=== PATIENT | female | born 1950 | race Caucasian/White ===

== ENCOUNTER → 2020-10-11 | Outpatient (CLI) | payer MEDICARE ==
[2020-10-11 13:45] LABS: T4, Free (Free Thyroxine) 1.45 ng/dL (0.78-2.19)
--- NOTE | 2020-10-11 19:26 | MR ---
EXAMINATION TYPE: MR brain wo/w con DATE OF EXAM: 10/11/2020 COMPARISON: NONE HISTORY: 70-year-old female G40.20, new onset temporal lobe Seizures. TECHNIQUE: Multiplanar, multisequence images of the brain and brainstem were acquired before and aft er administration of 7 mL IV Gadavist. Diffusion weighted imaging is performed. FINDINGS: There is some linear restricted diffusion along the right parafalcine occipital lobe that shows corre sponding bright T2 signal and enhancement measuring 1.9 cm AP, 4 mm thick, 1.9 cm craniocaudal. Otherwise, no restricted diffusion is seen. There is mild generalized supratentorial volume loss. No hydrocephalus. T2/FLAIR weighted sequences show moderate scattered burden of bright white matter change especially i n the subcortical and deep white matter regions was also in the periventricular regions of both cereb ral hemispheres. Major intracranial flow voids are intact. Midline structures demonstrate normal morphology. The craniocervical junction is normal. Post contrast images demonstrate no additional evidence of pathologic enhancement. Dural venous sinu ses are patent. Mild mucosal thickening ethmoid air cells. Small amount of fluid within the right mastoid air cells. Globes appear intact. IMPRESSION: 1. Some linear restricted diffusion along the right parafalcine occipital lobe shows corresponding en hancement measuring 1.9 cm long and 4 mm thick. Consider CSF sampling and inflammatory etiologies suc h as meningitis or neurosarcoid. Limited leptomeningeal spread is unlikely in the absence of a known primary neoplasm. MRI follow-up after any potential treatment. 2. Mild generalized atrophy and moderate scattered burden of chronic small vessel ischemic disease. 3. Small amount of fluid within the right mastoid air cells. Correlate for any mastoid pain to exclud e mastoiditis.
[2020-10-12 04:13] LABS: Protein, Total 6.8 g/dL (6.2-8.2)
[2020-10-12 13:56] LABS: Albumin 4.18 g/dL (3.80-4.90); Gamma Globulin 1.03 g/dL (0.70-1.50)
== END | disposition home or self-care (01) ==
LOC: RADMRIMAIN 10:36
PROVIDERS: ATTEND Psychiatry & Neurology Neurology
DX: I67.82 Cerebral ischemia (principal); R56.9 Unspecified convulsions; G31.9 Degenerative disease of nervous system, unspecified
CPT/HCPCS: 84439; 82747; 85652; 82607; 82550; 84443; 84165; 86038; 83036; 70553; 36415; A9585

== ENCOUNTER 2020-11-03 07:24 | Day surgery (SDC) | payer MEDICARE ==
[2020-11-03 08:06] VITALS: RESP 16; TEMP 97.3
[2020-11-03] MEDS ORDERED: LIDOCAINE 1% (10MG/ML) FOR IV START INTRADERMA ONE (08:16)
[2020-11-03] MEDS ORDERED: LACTATED RINGERS 1,000 ML IV ONE (08:16)
[2020-11-03] MEDS ORDERED: MIDAZOLAM 2 MG/2 ML VIAL ONE (08:23)
[2020-11-03] MEDS ORDERED: LIDOCAINE 1% INJ 10MG/ML (20 ML MDV) ONE (08:23)
--- NOTE | 2020-11-03 08:54 | P.PCN ---
Date of Procedure: 11/03/20 Description of Procedure: Preoperative diagnosis: seizures Post operative diagnoses: seizures Anesthesia local infiltration with lidocaine 1% 2 mL., [moderate sedation with fentanyl and Versed], sedation time 26 min Procedure: lumbar puncture usin fluroscope Condition: stable Complication: none. Description of the procedure procedure risk and benefits discussed with the patient and family, consent signed. Patient was taken to the procedure area placed in left lateral position. Local infiltration of the skin and subcutaneous tissue with lidocaine 1%. A 20-gauge Quincke-type needle advanced slowly at L3-4 interlaminar space using fluoroscopic guidance. I attempted without fluoroscopy x2 but was unsuccessful. CSF was collected. A total of 8 ML of clear cerebrospinal fluid collected in 4 tubes. Then, the needle was removed and a Band-Aid applied and patient tolerated the procedure well without any complications.
[2020-11-03] MEDS ORDERED: IV FLUID CONTINUATION 1,000 ML IV ONE (08:59)
--- NOTE | 2020-11-03 09:11 | FL ---
EXAMINATION TYPE: FL guided pain mgmt statistic DATE OF EXAM: 11/03/2020 FLUOROSCOPY Fluoroscopy time of 16 seconds was used during lumbar puncture. 1 image/s document/s the procedure.
[2020-11-03 09:14] VITALS: BP 119/56; PULSE 54
[2020-11-03 09:49] LABS: Glucose,CSF 55 mg/dL (40-70); Total Protein,CSF 85 mg/dL (12-60)
[2020-11-03 10:39] LABS: Appearance,CSF Clear; CSF Tube Number 4; CSF Tube Volume 1.8; Nucleated Cells, CSF 0 u/L (0-5); Red Blood Cell,CSF 3 u/L (0-10)
[2020-11-03 13:14] LABS: Partial Thromboplastin Time 24.3 sec (22.0-30.0); Prothrombin Time 10.6 sec (9.0-12.0)
[2020-11-04 10:55] LABS: VDRL, Qualitative CSF Nonreactive (Nonreactive)
== END 2020-11-03 09:49 | disposition home or self-care (01) ==
LOC: ORPAIN 07:24
PROVIDERS: ATTEND Anesthesiology
DX: R93.0 Abnormal findings on diagnostic imaging of skull and head, not elsewhere classified (principal); R56.9 Unspecified convulsions
CPT/HCPCS: 62270; 87529; 86592; 88108; 84157; 82945; 82164 ×2; 85610; 85730; 89050; 86618; 86038; J2250; J2001; 99152; 99153

== ENCOUNTER → 2020-12-30 | Outpatient (CLI) | payer MEDICARE ==
--- NOTE | 2020-12-30 18:09 | MR ---
EXAMINATION TYPE: MR brain wo/w con DATE OF EXAM: 12/30/2020 5:26 PM COMPARISON: The 10/11/2020 HISTORY: Abnormal Brain MRI CONTRAST: Patient received 6ml mL intravenous Gadavist gadolinium contrast. Multiplanar and multispin-echo imaging of the brain was performed . Pre and post contrast enhanced i mages are obtained. The ventricles, basal cisterns and sulci overlying the cerebral convexities are mildly enlarged. There is evidence of mild periventricular white matter ischemic demyelination. Remote deep white matter insults are also noted. No acute edema is seen on diffusion weighted imaging. Previously noted area of the increased signa l on diffusion-weighted imaging within the posterior parafalcine occipital lobe is not redemonstrated . Please note examination utilizing different magnets. There is no evidence for midline shift or mass effect. Acute intracranial hemorrhage or extra-axial collection is not evident. No enhancing lesions are seen. The paranasal sinuses and mastoid air cells are well-aerated. IMPRESSION: 1. Age-related atrophic and chronic small vessel ischemic change. No acute intracranial process at this time. 2. Previously noted area of the increased signal on diffusion-weighted imaging within the posterior p arafalcine occipital lobe is not redemonstrated.
== END | disposition home or self-care (01) ==
LOC: RADMRIMAIN 15:52
PROVIDERS: ATTEND Psychiatry & Neurology Neurology
DX: I67.82 Cerebral ischemia (principal); G31.9 Degenerative disease of nervous system, unspecified
CPT/HCPCS: 70553; A9585

== ENCOUNTER → 2021-01-12 | Outpatient (CLI) | payer MEDICARE ==
--- NOTE | 2021-01-12 15:57 | XR ---
EXAMINATION TYPE: XR cervical spine 6 views comp, XR thoracic spine 3 views complete DATE OF EXAM: 01/12/2021 COMPARISON: None HISTORY: 70-year-old female abnormal bony protuberance, neck pain, upper back pain. FINDINGS: Cervical spine: There is either a bipartite or chronically ununited segmental fracture of the right posterior first r ib. Correlate as to this corresponds to a palpable abnormality. There is also a right-sided first and second rib synostosis. No predental space widening or prevertebral soft tissue swelling. Degenerative changes at the C1 dens articulation. Multilevel facet and uncovertebral joint arthropathy. Moderate disc/endplate degenerat mehul change C3-C5 levels and C6-C7. This characterized by disc space narrowing, endplate sclerosis, an d anterior spurring. Grade 1 retrolisthesis C4-C5 and grade 1 anterolisthesis C5-C6. Limited odontoid view. On the right, possible severe bony neuroforaminal narrowing at C4-C5 and moderate at C3-C4. On the le ft, moderate bony neuroforaminal narrowing at C4-C5 and C6-C7. Thoracic spine: Undulating curvature of the thoracic spine with a prominent levoconvex component along the lower thor acic spine. 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 [facility] in the mid and lower thoracic sp ine. Vertebral body heights are preserved. Grade 1 retrolisthesis seems to be present at L1-L2 and L2 -L3. 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 Grade 1 anterolisthesis T2-T3 and T3-T4. IMPRESSION: Cervical spine: 1. Either bipartite right-sided first rib versus a chronically ununited segmental fracture of the pos terior right first rib. Correlate as to if this corresponds to a palpable abnormality. There is also a right-sided first and second rib synostosis. 2. Moderate multilevel spondylotic change. 3. Degenerative grade 1 spondylolisthesis C4-C5 and C5-C6. 4. There appears to be severe bony neural foraminal narrowing on the right at the C5 and moderate at a few additional levels as outlined above. Thoracic spine: 5. Undulating curvature of the thoracic spine with a prominent levoconvex component at the lower thor acic spine. 6. 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 7. 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 8. Degenerative grade 1 anterolisthesis T2-T3 and T3-T4 and degenerative grade 1 retrolisthesis L1-L2 and L2-L3.
== END | disposition home or self-care (01) ==
LOC: RADXRMAIN 13:36
PROVIDERS: ATTEND Psychiatry & Neurology Neurology
DX: M47.812 Spondylosis without myelopathy or radiculopathy, cervical region (principal); M43.12 Spondylolisthesis, cervical region; M43.16 Spondylolisthesis, lumbar region
CPT/HCPCS: 72050; 72072

== ENCOUNTER → 2021-09-05 | Outpatient (CLI) | payer MEDICARE ==
[2021-09-06 00:12] LABS: African American GFR (CKD) 108.7 (60.0-200.0); Anion Gap 10.2 mmol/L (10.00-18.00); BUN/Creat Ratio 31.47 Ratio (12.00-20.00); Blood Urea Nitrogen 16.9 mg/dL (9.0-27.0); Calcium 9.9 mg/dL (8.7-10.3); Carbon Dioxide 29.1 mmol/L (20.0-27.5); Non-African American GFR(CKD) 93.8 (60.0-200.0); Potassium 4.8 mmol/L (3.5-5.5)
[2021-09-06 00:55] LABS: Basophils # (A) 0.06 X 10*3/uL (0.00-0.10); Basophils % (A) 0.8 %; Eosinophils # (A) 0.17 X 10*3/uL (0.04-0.35); Eosinophils % (A) 2.3 %; HCT 36.6 % (37.2-46.3); HGB 11.7 g/dL (12.0-15.0); Immature Grans, Automated 0.3 %; Lymphocytes # (A) 1.61 X 10*3/uL (0.90-5.00); Lymphocytes % (A) 21.4 %; MCV 87.6 fL (80.0-97.0); Mean Platelet Volume 9.5 fL (9.5-12.2); Monocytes # (A) 0.43 X 10*3/uL (0.20-1.00); Monocytes % (A) 5.7 %; NRBC Per 100 WBC 0 /100 WBCS (0.0-0.0); Neutrophils # (A) 5.22 X 10*3/uL (1.80-7.70); Neutrophils % (A) 69.5 %; Platelet Count 313 X 10*3/uL (140-440); RBC 4.18 X 10*6/uL (4.10-5.20); RDW 13.7 % (11.5-14.5); WBC 7.51 X 10*3/uL (4.50-10.00)
== END | disposition home or self-care (01) ==
LOC: LABWHC1 15:03
PROVIDERS: ATTEND Psychiatry & Neurology Neurology
DX: Z51.81 Encounter for therapeutic drug level monitoring (principal)
CPT/HCPCS: 36415; 80048; 85025

== ENCOUNTER 2021-10-13 13:43 | Inpatient (IN) | payer MEDICARE ==
[2021-10-13] MEDS ORDERED: SODIUM CHLORIDE 0.9% 1,000 ML IV STA (14:08)
[2021-10-13] MEDS ORDERED: levETIRAcetam IV 1,000 MG in SALINE 1 100ML.BAG IVPB STA (14:08)
--- NOTE | 2021-10-13 14:26 | ED ---
General Adult HPI - General Chief complaint: Seizure Stated complaint: Seizures Time Seen by Provider: 10/13/21 13:52 Source: EMS, RN notes reviewed, old records reviewed Mode of arrival: EMS Limitations: altered mental status - History of Present Illness Initial comments: Patient is a 71-year-old female with past medical history remarkable for hypertension, seizure disorder who presents emergency department for multiple seizures today. Patient said for seizures. Per family and EMS, patient recently was switched from Keppra to trileptal. Patient for seizures morning. Did have urinary incontinence. Patient currently states she feels fine. Not altered. No acute complaints. Denies chest pain, shortness breath, abdominal pain, nausea, vomiting. Denies fevers, sick contacts. No other acute complaints. Presents for further evaluation time. He isn't known history of seizures. Is uncertain if she hit her head. States she is not on blood thinners. - Related Data Home Medications Medication Instructions Recorded Confirmed lisinopriL [Prinivil] 20 mg PO DAILY 11/03/20 10/13/21 Cyclobenzaprine [Flexeril] 5 mg PO DAILY 10/13/21 10/13/21 Cyclobenzaprine [Flexeril] 10 mg PO HS 10/13/21 10/13/21 Magnesium 250 mg PO DAILY 10/13/21 10/13/21 OXcarbazepine [Trileptal] 300 mg PO BID 10/13/21 10/13/21 Turmeric Complex 3 capsule PO DAILY 10/13/21 10/13/21 traMADol HCL 50 mg PO Q8H PRN 10/13/21 10/13/21 Allergies Allergy/AdvReac Type Severity Reaction Status Date / Time No Known Allergies Allergy Verified 10/13/21 17:51 Review of Systems ROS Statement: Those systems with pertinent positive or pertinent negative responses have been documented in the HPI. Review of Systems: CONST: Denies fever EYES: Denies blurry vision ENT: Denies nasal congestion C/V: Denies Chest pain RESP: Denies shortness of breath GI: Denies abdominal pain : Denies dysuria SKIN: Denies rash. MSK: Denies joint pain. NEURO: Denies headache ROS Other: All systems not noted in ROS Statement are negative. General Exam - General Exam Comments Initial Comments: General: Appears in no acute distress. HEAD: Normal with no signs of head trauma. Negative raccoon eyes, negative Munoz sign. EYES: PERRLA, EOMI, conjunctiva normal, no discharge. Pupils are 2 mm and equal bilaterally. ENT: Hearing grossly intact, normal oropharynx. RESPIRATORY: Clear breath sounds bilaterally. No wheezes, rales, or rhonchi. C/V: Tachycardic with a regular rhythm. S1 and S2 auscultated. Peripheral pulses 2+ and intact throughout. ABD: Abd is soft, nontender, nondistended EXT: Normal range of motion, no obvious deformity SKIN: No rashes or lesions observed on exposed skin. NEURO: Alert and oriented x 4. Cranial nerves II-XII intact. No focal sensory or strength deficits. NIH of 0. GCS of 15. No focal deficits. Limitations: altered mental status Course Vital Signs 10/13/21 10/13/21 10/13/21 13:47 15:22 17:00 Temperature 98.4 F Pulse Rate 114 H 109 H 107 H Respiratory 18 16 18 Rate Blood Pressure 155/99 166/90 160/87 O2 Sat by Pulse 96 97 98 Oximetry 10/13/21 10/13/21 18:16 19:12 Temperature 97.7 F Pulse Rate 110 H 97 Respiratory 18 16 Rate Blood Pressure 173/92 150/80 O2 Sat by Pulse 98 94 L Oximetry Medical Decision Making - Medical Decision Making Patient is a 71-year-old female with history of seizures who presents for multiple breakthrough seizures today. Recently was switched to a different medication for seizure control. Based on her presentation and physical exam, I would like to obtain basic laboratory studies, administered her dose of Keppra, as well as monitor her for further seizure activity. Family is on the way here he quit them when they arrived. I did recommend we obtain a CT brain, as the p atient. Multiple seizures and she is uncertain if she fell, with her age is more prone to injury. Patient was in agreement with this plan. She'll be given IV fluids in addition to the IV Keppra. His no other acute complaints at this time. Seizure pads and precautions were ordered. EKG showed no signs of acute ischemia.Laboratory studies are remarkable for hyponatremia of 126 and hypochloremia of 95. Remainder the labs are unremarkable including a normal urine. Alcohol is negative. Chest x-ray shows no acute cardio primary process. Brain CT shows no acute intracranial process. On reevaluation, patient's confusion is just improved. She is still slow to respond to some questions. Patient's daughter is at bedside, and patient does have some confusion. The family members which she states they typical for her. Patient is having difficulty naming the names of all of her grandchildren as well as the names of her children. I splinter that she still may be postictal. With her dehydration, we can keep her and give her overnight. They were in agreement this plan. I spoke with the admitting physician, Dr. Campbell who accepted the patient. Neurology was consulted for evaluation the morning. Patient was restarted on Trileptal as well as Keppra. Patient states she had some right rib pain and chest x-ray was obtained which showed no acute process. - Lab Data Result diagrams: 10/13/21 15:02 10/13/21 15:02 Lab Results 10/13/21 10/13/21 10/13/21 Range/Units 15:02 15:02 17:12 WBC 8.5 (3.8-10.6) k/uL RBC 4.50 (3.80-5.40) m/uL Hgb 13.1 (11.4-16.0) gm/dL Hct 39.5 (34.0-46.0) % MCV 87.6 (80.0-100.0) fL MCH 29.0 (25.0-35.0) pg MCHC 33.1 (31.0-37.0) g/dL RDW 13.3 (11.5-15.5) % Plt Count 339 (150-450) k/uL MPV 7.1 Neutrophils % 92 % Lymphocytes % 5 % Monocytes % 2 % Eosinophils % 0 % Basophils % 0 % Neutrophils # 7.8 H (1.3-7.7) k/uL Lymphocytes # 0.5 L (1.0-4.8) k/uL Monocytes # 0.2 (0-1.0) k/uL Eosinophils # 0.0 (0-0.7) k/uL Basophils # 0.0 (0-0.2) k/uL Sodium 126 L (137-145) mmol/L Potassium 4.5 (3.5-5.1) mmol/L Chloride 95 L (98-107) mmol/L Carbon Dioxide 24 (22-30) mmol/L Anion Gap 7 mmol/L BUN 15 (7-17) mg/dL Creatinine 0.47 L (0.52-1.04) mg/dL Est GFR (CKD-EPI)AfAm >90 (>60 ml/min/1.73 sqM) Est GFR (CKD-EPI)NonAf >90 (>60 ml/min/1.73 sqM) Glucose 111 H (74-99) mg/dL Calcium 9.3 (8.4-10.2) mg/dL Magnesium 1.9 (1.6-2.3) mg/dL Total Bilirubin 0.3 (0.2-1.3) mg/dL AST 20 (14-36) U/L ALT 14 (4-34) U/L Alkaline Phosphatase 64 (38-126) U/L Total Protein 7.0 (6.3-8.2) g/dL Albumin 4.4 (3.5-5.0) g/dL Urine Color Colorless Urine Appearance Clear (Clear) Urine pH 7.0 (5.0-8.0) Ur Specific [place] 1.004 (1.001-1.035) Urine Protein Negative (Negative) Urine Glucose (UA) Negative (Negative) Urine Ketones 1+ H (Negative) Urine Blood Negative (Negative) Urine Nitrite Negative (Negative) Urine Bilirubin Negative (Negative) Urine Urobilinogen <2.0 (<2.0) mg/dL Ur Leukocyte Esterase Negative (Negative) Serum Alcohol <10 mg/dL - EKG Data -: EKG Interpreted by Me EKG Comments: 12-lead Electrocardiogram Interpretation Note EKG was reviewed and interpreted by myself. 12-lead ECG performed at 1400 is interpreted by me as revealing sinus tachycardia at a rate of 114 beats per minute. [place] is normal. [place] interval is 182 ms, QRS duration is 91 ms, QTc is 390 ms.. There were no ST or T wave abnormalities to suggest myocardial ischemia or injury. R wave progression across the precordium was satisfactory. By my interpretation this EKG is non-diagnostic for acute ischemia. No prior comparison to EKGs. Disposition Clinical Impression: Dehydration, Hyponatremia, Breakthrough seizure, Post-ictal confusion Disposition: ADMITTED IP TO THIS [facility] Condition: Stable Time of Disposition: 18:03
[2021-10-13 15:10] LABS: Basophils % (A) 0 %; Eosinophils % (A) 0 %; HCT 39.5 % (34.0-46.0); HGB 13.1 gm/dL (11.4-16.0); Lymphocytes # (A) 0.5 k/uL (1.0-4.8); Lymphocytes % (A) 5 %; MCHC 33.1 g/dL (31.0-37.0); MCV 87.6 fL (80.0-100.0); Mean Platelet Volume 7.1; Monocytes # (A) 0.2 k/uL (0-1.0); Monocytes % (A) 2 %; Neutrophils # (A) 7.8 k/uL (1.3-7.7); Neutrophils % (A) 92 %; Platelet Count 339 k/uL (150-450); RDW 13.3 % (11.5-15.5); WBC 8.5 k/uL (3.8-10.6)
[2021-10-13 15:21] LABS: ALT 14 U/L (4-34); AST 20 U/L (14-36); African American GFR (CKD) >90 (>60 ml/min/1.73 sqM); Albumin 4.4 g/dL (3.5-5.0); Alcohol <10 mg/dL; Alkaline Phosphatase 64 U/L (38-126); Anion Gap 7 mmol/L; Blood Urea Nitrogen 15 mg/dL (7-17); Calcium 9.3 mg/dL (8.4-10.2); Carbon Dioxide 24 mmol/L (22-30); Chloride 95 mmol/L (98-107); Glucose 111 mg/dL (74-99); Magnesium 1.9 mg/dL (1.6-2.3); Non-African American GFR(CKD) >90 (>60 ml/min/1.73 sqM); Potassium 4.5 mmol/L (3.5-5.1); Sodium 126 mmol/L (137-145); Total Bilirubin 0.3 mg/dL (0.2-1.3)
[2021-10-13] MEDS ORDERED: SODIUM CHLORIDE 0.9% 500 ML 500 ML IV STA (15:24)
--- NOTE | 2021-10-13 16:16 | CT ---
EXAMINATION TYPE: CT brain wo con CT DLP: 1143.4 mGycm, Automated exposure control for dose reduction was used. DATE OF EXAM: 10/13/2021 4:01 PM COMPARISON: None6. CLINICAL INDICATION:Female, 71 years old with history of seizure activity, Seizure activity TECHNIQUE: Brain: Axial CT images of the brain were obtained with coronal and sagittal reformats created and rev iewed. Contrast used: None. Oral contrast used: None. FINDINGS: Brain: Extra-axial spaces: No abnormal extra-axial fluid collections. Ventricular system: Dilatation in proportion to cerebral atrophy. Cerebral parenchyma: Cerebral atrophy. No acute intraparenchymal hemorrhage or mass effect. The mendoza -white junction is well differentiated. Scattered hypoattenuating areas are seen within the white mat ter. Cerebellum: Unremarkable. Mass effect: No evidence of midline shift. Intracranial vasculature: Atherosclerotic calcifications of the intracranial vessels. Soft tissues: Normal. Calvarium/osseous structures: No depressed skull fracture. Paranasal sinuses and mastoid air cells: Mild scattered paranasal sinus disease. Visualized orbits: Orbital contents are intact. IMPRESSION: 1. No acute intracranial process. 2. Nonspecific white matter changes, likely secondary to chronic small vessel ischemic disease.
[2021-10-13 17:17] LABS: Appearance,Urine Clear (Clear); Bilirubin,Urine Negative (Negative); Blood,Urine Negative (Negative); Color,Urine Colorless; Glucose,Urine (UA) Negative (Negative); Ketones,Urine 1+ (Negative); Leukocyte Esterase,Urine Negative (Negative); Nitrite,Urine Negative (Negative); Protein,Urine Negative (Negative); Specific Gravity,Urine 1.004 (1.001-1.035); Urobilinogen,Urine <2.0 mg/dL (<2.0)
[2021-10-13] MEDS ORDERED: ONDANSETRON 4 MG/2 ML VIAL IVP PRN (18:03)
[2021-10-13] MEDS ORDERED: NALOXONE 0.4 MG/ML 1 ML VIAL IV PRN (18:03)
[2021-10-13] MEDS ORDERED: traMADol 50 MG TAB PO PRN (18:08)
--- NOTE | 2021-10-13 18:45 | XR ---
EXAMINATION TYPE: XR chest 2V DATE OF EXAM: 10/13/2021 COMPARISON: NONE HISTORY: Chest pain TECHNIQUE: 2 views FINDINGS: Heart is normal. Lungs are clear of infiltrate. No heart failure. There is some spurring in the shoulder joints. There is spurring in the thoracic spine. No sign of pleural effusion. IMPRESSION: No active cardiopulmonary disease.
[2021-10-13] MEDS: levETIRAcetam 500 MG TAB PO SCH (21:32)
[2021-10-13] MEDS: CYCLOBENZAPRINE 10 MG TAB PO SCH (21:32)
[2021-10-13] MEDS: SODIUM CHLORIDE 0.9% 1,000 ML IV SCH (21:33)
[2021-10-13] MEDS: OXcarbazepine 300 MG TAB PO SCH (21:36)
[2021-10-14] MEDS: SODIUM CHLORIDE 0.9% 1,000 ML IV SCH ×2 (06:40→23:57)
[2021-10-14] MEDS: levETIRAcetam 500 MG TAB PO SCH ×2 (09:28→21:07)
[2021-10-14] MEDS: MAGNESIUM OXIDE 400 MG TAB PO SCH (09:28)
[2021-10-14] MEDS: CYCLOBENZAPRINE 5 MG TAB PO SCH (09:28)
[2021-10-14] MEDS: OXcarbazepine 300 MG TAB PO SCH ×2 (09:28→21:07)
[2021-10-14] MEDS: lisinopriL 20 MG TAB PO SCH (09:28)
[2021-10-14 10:14] LABS: Basophils % (A) 0 %; Eosinophils # (A) 0.1 k/uL (0-0.7); Eosinophils % (A) 1 %; HCT 35.4 % (34.0-46.0); HGB 11.6 gm/dL (11.4-16.0); Lymphocytes # (A) 1.1 k/uL (1.0-4.8); Lymphocytes % (A) 21 %; MCH 28.9 pg (25.0-35.0); MCHC 32.7 g/dL (31.0-37.0); MCV 88.3 fL (80.0-100.0); Monocytes # (A) 0.3 k/uL (0-1.0); Monocytes % (A) 6 %; Neutrophils # (A) 3.5 k/uL (1.3-7.7); Neutrophils % (A) 70 %; Platelet Count 308 k/uL (150-450); RBC 4.01 m/uL (3.80-5.40); RDW 12.9 % (11.5-15.5); WBC 4.9 k/uL (3.8-10.6)
[2021-10-14 10:32] LABS: African American GFR (CKD) >90 (>60 ml/min/1.73 sqM); Anion Gap 2 mmol/L; Blood Urea Nitrogen 9 mg/dL (7-17); Calcium 9.2 mg/dL (8.4-10.2); Carbon Dioxide 28 mmol/L (22-30); Chloride 101 mmol/L (98-107); Glucose 78 mg/dL (74-99); Non-African American GFR(CKD) >90 (>60 ml/min/1.73 sqM); Potassium 3.9 mmol/L (3.5-5.1); Sodium 131 mmol/L (137-145)
--- NOTE | 2021-10-14 12:39 | P.CNNES ---
History of Present Illness Consult date: 10/14/21 Requesting physician: Blair Sena Reason for Consult: post ictal state History of Present Illness: This is a 71-year-old woman with history of seizure, hypertension who presented emergency department on 10/13/2021 for multiple seizures. History is obtained from the patient's daughter (via phone). Per the daughter the patient notified the daughter that she had multiple seizure-like episodes yesterday but the sei zure were not witnessed. Patient does have history of seizure and follows up with Dr. Schumacher. Her seizure has been controlled but it seems that patient was weaned off of Keppra and per the daughter she is unsure but the Keppra was doing good job controlling her seizure. She did not have any true side effects to the Keppra she didn't have any behavioral changes possibly she had worsening memory but again this questionable and per the daughter the patient does have memory loss even before Keppra was started. She is on Trileptal 300 mg 1 tablet twice a day. She has not had any further seizure while in our hospital. She denies of any fevers, nausea vomiting and abdominal pain. It's also unc ertain if she hit her head. It seems that she has had seizures for years and unsure how long on unsure if she has any aura prior to the seizures. Some of the workup during this hospital visit consisted of: Patient is afebrile. CBC with differential is unremarkable. Sodium is 126, glucose is 111, chloride is 95 creatinine is 0.47 otherwise rest of the [place] panel is unremarkable Prolactin is within normal limits was 7.30 normal supposed to be between 2. [address] of the head is reported as no acute intracranial processes. Nonspecific white matter change. It is likely related to chronic small vessel ischemic disease. Personally reviewed the CT head and there is no acute or subacute is chemia there is no intraocular hemorrhage. Review of Systems Review of system: The 12 point system was reviewed and apparent positive and negative per HPI. Past Medical History Past Medical History: Seizure Disorder History of Any Multi-Drug Resistant Organisms: None Reported Past Surgical History: Tonsillectomy Past Anesthesia/Blood Transfusion Reactions: No Reported Reaction Past Psychological History: No Psychological Hx Reported Smoking Status: Never smoker Medications and Allergies Home Medications Medication Instructions Recorded Confirmed Type lisinopriL [Prinivil] 20 mg PO DAILY 11/03/20 10/13/21 History Cyclobenzaprine [Flexeril] 5 mg PO DAILY 10/13/21 10/13/21 History Cyclobenzaprine [Flexeril] 10 mg PO HS 10/13/21 10/13/21 History Magnesium 250 mg PO DAILY 10/13/21 10/13/21 History OXcarbazepine [Trileptal] 300 mg PO BID 10/13/21 10/13/21 History Turmeric Complex 3 capsule PO DAILY 10/13/21 10/13/21 History traMADol HCL 50 mg PO Q8H PRN 10/13/21 10/13/21 History Allergies Allergy/AdvReac Type Severity Reaction Status Date / Time No Known Allergies Allergy Verified 10/13/21 17:51 Physical Examination - Vital Signs Vital Signs: Vital Signs Temp Pulse Pulse Resp BP BP Pulse Ox 10/14/21 04:00 98.1 F 89 16 156/73 97 10/13/21 23:06 97.9 F 102 H 16 170/71 99 10/13/21 20:00 98.6 F 98 16 166/82 97 10/13/21 19:12 97.7 F 97 16 150/80 94 L 10/13/21 18:16 110 H 18 173/92 98 10/13/21 17:00 107 H 18 160/87 98 10/13/21 15:22 109 H 16 166/90 97 10/13/21 13:47 98.4 F 114 H 18 155/99 96 Intake and Output 10/13/21 10/14/21 10/14/21 22:59 06:59 14:59 Intake Total 720 Balance 720 Intake: Intake, IV Titration 500 Amount Sodium Chloride 0.9% 1, 500 000 ml @ 100 mls/hr IV . Q10H [facility] Rx#:[id number] Oral 220 Other: Voiding Method Toilet Toilet # Voids 2 1 Weight 61.235 kg 64 kg GENERAL: The patient is lying in bed and is not in acute distress. CHEST: The heart rate is regular rate rhythm. No murmurs to auscultation. LUNG: Clear to auscultation bilaterally no wheezing noted throughout. Not labored breathing. ABDOMEN/GI: Bowel sounds present in all 4 quadrants. No tenderness to palpation throughout. NEUROLOGICAL: Higher mental function: The patient is awake, alert, oriented to self, place and time. Patient is following simple commands. No aphasia and no neglect. Cranial nerves: The pupils are round, equal and reactive to light. Visual preciado are full to confrontation throughout. Extraocular movement is intact no nystagmus is noted. Facial sensation is normal to touch throughout. The facial strength is normal throughout. Hearing is mildly decreased bilaterally to hand rub. Tongue is midline and moved [id number] without any difficulty. No dysarthria is noted. Shoulder shrug is normal bilaterally. Motor: The strength is 5 over 5 throughout. Normal tone and bulk. Cerebellum: Normal finger to nose bilaterally. Sensation: Sensation is normal to touch throughout. Reflexes (right/left): 1+ throughout. Plantars are downgoing bilaterally. Results - Laboratory Findings CBC and BMP: 10/14/21 09:20 10/14/21 09:20 Abnormal Lab Findings: Abnormal Labs 10/13/21 10/13/21 10/13/21 15:02 15:02 17:12 Neutrophils # 7.8 H Lymphocytes # 0.5 L Sodium 126 L Chloride 95 L Creatinine 0.47 L Glucose 111 H Urine Ketones 1+ H 10/14/21 09:20 Neutrophils # Lymphocytes # Sodium 131 L Chloride Creatinine 0.44 L Glucose Urine Ketones Assessment and Plan Assessment: Breakthrough seizure. Since been off Keppra per neurologist recommendation. History of seizure Cognitive impairement/dementia Hypertension Plan: In the ED the patient was given Keppra 1 g once and was restarted on her Trileptal 300 mg 1 tablet twice a day and then was started on Keppra 500 mg every 12 hours. The patient and her daughter stated that the Keppra was controlling her seizures while she was on it so to resume the Keppra. If she escobar s any side effects Keppra considerVimpat 50mg tablet twice a day. 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 And it the patient is doing better Trileptal level is ordered by the ED team is pending We'll defer the rest of the medical management to the primary team Per the [facility] the patient cannot drive for 6 month until the no further seizures, avoid heights, swimming unassisted and the use heavy machinery and this was notified to the patient. The patient to follow-up with her neurologist (Dr. Schumacher) as outpatient within 1-2 weeks. Thank you for the consultation. Patient is clear for discharge from neurological perspective since she's doing much better and no further seizures. Jose Leiva M.D. Neuro-hospitalist Time with Patient: Greater than 30
--- NOTE | 2021-10-14 17:14 | P.HPIM ---
History of Present Illness H&P Date: 10/13/21 Chief Complaint: Seizures 71-year-old female with past medical history remarkable for hypertension, seizure disorder who presents emergency department for multiple seizures today. Patient said for seizures. Per family and EMS, patient recently was switched from Keppra to trileptal. Patient for seizures morning. Did have urinary incontinence. Patient currently states she feels fine. Not altered. No acute complaints. Denies chest pain, shortness breath, abdominal pain, nausea, vomiting. Denies fevers, sick contacts. No other acute complaints. Presents for further evaluation time. He isn't known history of seizures. Is uncertain if she hit her head. States she is not on blood thinners. Workup completed in ED-- CBC with differential is unremarkable. Sodium is 126, glucose is 111, chloride is 95 creatinine is 0.47 otherwise rest of the [place] panel is unremarkable Prolactin is within normal limits was 7.30 normal supposed to be between 2. [address] of the head is reported as no acute intracranial processes. Nonspecific white matter change. It is likely related to chronic small vessel ischemic disease. Personally reviewed the CT head and there is no acute or subacute ischemia there is no intraocular hemorrhage. Review of Systems REVIEW OF SYSTEMS: CONSTITUTIONAL: No fever, no malaise, no fatigue. HEENT: No recent visual problems or hearing problems. Denied any sore throat. CARDIOVASCULAR: No chest pain, orthopnea, PND, no palpitations, no syncope. PULMONARY: No shortness of breath, no cough, no hemoptysis. GASTROINTESTINAL: No diarrhea, no nausea, no vomiting, no abdominal pain. NEUROLOGICAL: No headaches, no weakness, no numbness. HEMATOLOGICAL: Denies any bleeding or petechiae. GENITOURINARY: Denies any burning micturition, frequency, or urgency. MUSCULOSKELETAL/RHEUMATOLOGICAL: Denies any joint pain, swelling, or any muscle pain. ENDOCRINE: Denies any polyuria or polydipsia. The rest of the 14-point review of systems is negative. Medications and Allergies Home Medications Medication Instructions Recorded Confirmed Type lisinopriL [Prinivil] 20 mg PO DAILY 11/03/20 10/13/21 History Cyclobenzaprine [Flexeril] 5 mg PO DAILY 10/13/21 10/13/21 History Cyclobenzaprine [Flexeril] 10 mg PO HS 10/13/21 10/13/21 History Magnesium 250 mg PO DAILY 10/13/21 10/13/21 History OXcarbazepine [Trileptal] 300 mg PO BID 10/13/21 10/13/21 History Turmeric Complex 3 capsule PO DAILY 10/13/21 10/13/21 History traMADol HCL 50 mg PO Q8H PRN 10/13/21 10/13/21 History Allergies Allergy/AdvReac Type Severity Reaction Status Date / Time No Known Allergies Allergy Verified 10/13/21 17:51 Physical Exam Vitals: Vital Signs Temp Pulse Resp BP Pulse Ox 10/13/21 19:12 97.7 F 97 16 150/80 94 L 10/13/21 18:16 110 H 18 173/92 98 10/13/21 17:00 107 H 18 160/87 98 10/13/21 15:22 109 H 16 166/90 97 10/13/21 13:47 98.4 F 114 H 18 155/99 96 Intake and Output 10/13/21 10/13/21 10/13/21 06:59 14:59 22:59 Other: Weight 61.235 kg PHYSICAL EXAMINATION: GENERAL: The patient is alert and oriented x3, not in any acute distress. Well developed, well nourished. HEENT: Pupils are round and equally reacting to light. EOMI. No scleral icterus. No conjunctival pallor. Normocephalic, atraumatic. No pharyngeal erythema. No thyromegaly. CARDIOVASCULAR: S1 and S2 present. No murmurs, rubs, or gallops. PULMONARY: Chest is clear to auscultation, no wheezing or crackles. ABDOMEN: Soft, nontender, nondistended, normoactive bowel sounds. No palpable organomegaly. MUSCULOSKELETAL: No joint swelling or deformity. EXTREMITIES: No cyanosis, clubbing, or pedal edema. NEUROLOGICAL: Gross neurological examination did not reveal any focal deficits. SKIN: No rashes. Results CBC & Chem 7: 10/14/21 09:20 10/14/21 09:20 Labs: Abnormal Lab Results - Last 24 Hours (Table) 10/13/21 10/13/21 10/13/21 Range/Units 15:02 15:02 17:12 Neutrophils # 7.8 H (1.3-7.7) k/uL Lymphocytes # 0.5 L (1.0-4.8) k/uL Sodium 126 L (137-145) mmol/L Chloride 95 L (98-107) mmol/L Creatinine 0.47 L (0.52-1.04) mg/dL Glucose 111 H (74-99) mg/dL Urine Ketones 1+ H (Negative) Assessment and Plan Assessment: 1. Breakthrough seizures - Patient reports an primary neurologist has been in the process of adjusting antiepileptic therapy; patient has been off Keppra In the ED the patient was given Keppra 1 g once and was restarted on her Trileptal 300 mg 1 tablet twice a day and then was started on Keppra 500 mg every 12 hours. The patient and her daughter stated that the Keppra was controlling her seizures while she was on it so to resume the Keppra. If she has any side effects Keppra considerVimpat 50mg tablet twice a day. Patient is on seizure precaution seizure pads Neurology on board and EEG is not recommended Per the [place] DM the patient cannot drive for 6 month until the no further seizures, avoid heights, swimming unassisted and the use heavy machinery and this was notified to the patient. The patient to follow-up with her neurologist (Dr. Schumacher) as outpatient within 1-2 weeks. 2. Hypertension; lisinopril 20 mg daily 3. Chronic back pain; continue with home dose of tramadol and Flexeril DVT prophylaxis; SCDs CODE STATUS; full code
[2021-10-14] MEDS: CYCLOBENZAPRINE 10 MG TAB PO SCH (21:07)
[2021-10-15] MEDS: SODIUM CHLORIDE 0.9% 1,000 ML IV SCH (04:07)
[2021-10-15] MEDS: lisinopriL 20 MG TAB PO SCH (09:38)
[2021-10-15] MEDS: levETIRAcetam 500 MG TAB PO SCH (09:38)
[2021-10-15] MEDS: MAGNESIUM OXIDE 400 MG TAB PO SCH (09:38)
[2021-10-15] MEDS: CYCLOBENZAPRINE 5 MG TAB PO SCH (09:38)
[2021-10-15] MEDS: OXcarbazepine 300 MG TAB PO SCH (09:38)
[2021-10-15 09:47] LABS: African American GFR (CKD) >90 (>60 ml/min/1.73 sqM); Anion Gap 2 mmol/L; Blood Urea Nitrogen 13 mg/dL (7-17); Calcium 9.6 mg/dL (8.4-10.2); Carbon Dioxide 31 mmol/L (22-30); Chloride 100 mmol/L (98-107); Glucose 106 mg/dL (74-99); Non-African American GFR(CKD) >90 (>60 ml/min/1.73 sqM); Potassium 3.8 mmol/L (3.5-5.1); Sodium 133 mmol/L (137-145)
[2021-10-15 10:20] VITALS: RESP 18; TEMP 98.2
[2021-10-15 15:09] VITALS: BP 168/82; PULSE 82
== END 2021-10-15 16:17 | disposition home or self-care (01) | DRG 101 ==
LOC: EC 13:43 → 3SCARD 18:03
PROVIDERS: ADMIT Internal Medicine; ATTEND Internal Medicine
DX: G40.909 Epilepsy, unspecified, not intractable, without status epilepticus (principal); E87.1 Hypo-osmolality and hyponatremia; F03.90 Unspecified dementia, unspecified severity, without behavioral disturbance, psychotic disturbance, mood disturbance, and anxiety; Z28.310 Unvaccinated for COVID-19; E86.0 Dehydration; I10 Essential (primary) hypertension; G89.29 Other chronic pain; M54.9 Dorsalgia, unspecified; R32 Unspecified urinary incontinence; Z79.899 Other long term (current) drug therapy; E87.8 Other disorders of electrolyte and fluid balance, not elsewhere classified
CPT/HCPCS: 36415; 70450; 71046; 80048; 80053; 80183; 80320; 81003; 83735; 84146; 85025; 93005; 96374; 99285

== ENCOUNTER → 2021-11-10 | Outpatient (CLI) | payer MEDICARE ==
[2021-11-10 23:07] LABS: African American GFR (CKD) 104.9 (60.0-200.0); Anion Gap 9.6 mmol/L (10.00-18.00); BUN/Creat Ratio 27.42 Ratio (12.00-20.00); Blood Urea Nitrogen 16.4 mg/dL (9.0-27.0); Calcium 9.7 mg/dL (8.7-10.3); Non-African American GFR(CKD) 90.5 (60.0-200.0); Potassium 4.5 mmol/L (3.5-5.5); T4, Free (Free Thyroxine) 1.12 ng/dL (0.800-1.800)
== END | disposition home or self-care (01) ==
LOC: LABWHC1 14:50
PROVIDERS: ATTEND Psychiatry & Neurology Neurology
DX: E03.9 Hypothyroidism, unspecified (principal); E87.1 Hypo-osmolality and hyponatremia; Z79.899 Other long term (current) drug therapy
CPT/HCPCS: 36415; 80048; 84439; 84443

== ENCOUNTER → 2021-11-24 | Outpatient (CLI) | payer MEDICARE | END | disposition home or self-care (01) | LOC: LABWHC1 14:39 | PROVIDERS: ATTEND Psychiatry & Neurology Neurology | DX: M79.10 Myalgia, unspecified site (principal); M25.60 Stiffness of unspecified joint, not elsewhere classified; R53.1 Weakness | CPT/HCPCS: 36415; 82550; 85652; 86038 ==

== ENCOUNTER 2022-03-30 12:38 | Day surgery (SDC) | payer MEDICARE ==
[2022-03-30 14:35] VITALS: RESP 18
[2022-03-30 14:36] VITALS: PULSE 78
[2022-03-30 14:37] VITALS: BP 169/80
--- NOTE | 2022-03-30 14:46 | US ---
ULTRASOUND GUIDED FNA THYROID BIOPSY: CLINICAL HISTORY: Left thyroid nodule FINDINGS: The procedure was explained to the patient. The risks, complications, benefits and alternatives were discussed and any questions were answered. Informed consent was obtained. Patient was placed supin e on the ultrasound table and prepped and draped in the usual sterile fashion. Utilizing a 25 gauge needle, five passes were made into the requested left thyroid nodule. Patient was stable throughout the procedure. Pathology is pending. All elements of maximal barrier technique were utilized. IMPRESSION: 1. Successful ultrasound guided FNA thyroid biopsy.
== END 2022-03-30 14:30 | disposition home or self-care (01) ==
LOC: RADPROMAIN 12:38
PROVIDERS: ATTEND Family Medicine
DX: E04.1 Nontoxic single thyroid nodule (principal)
CPT/HCPCS: 10005; 88173; 88305

== ENCOUNTER → 2022-07-03 | Outpatient (CLI) | payer MEDICARE ==
[2022-07-03 20:13] LABS: Basophils # (A) 0.06 X 10*3/uL (0.00-0.10); Basophils % (A) 0.8 %; Eosinophils # (A) 0.15 X 10*3/uL (0.04-0.35); HGB 12.3 g/dL (12.0-15.0); Immature Grans, Automated 0.3 %; Lymphocytes # (A) 1.64 X 10*3/uL (0.90-5.00); Lymphocytes % (A) 22.3 %; MCH 28.5 pg (27.0-32.0); MCHC 32.4 g/dL (32.0-37.0); Mean Platelet Volume 9.7 fL (9.5-12.2); Monocytes # (A) 0.39 X 10*3/uL (0.20-1.00); Monocytes % (A) 5.3 %; NRBC Per 100 WBC 0 /100 WBCS (0.0-0.0); Neutrophils # (A) 5.08 X 10*3/uL (1.80-7.70); Neutrophils % (A) 69.3 %; Platelet Count 269 X 10*3/uL (140-440); RBC 4.32 X 10*6/uL (4.10-5.20); RDW 13.7 % (11.5-14.5); WBC 7.34 X 10*3/uL (4.50-10.00)
[2022-07-03 20:29] LABS: ALT 17 U/L (8-44); AST 14 U/L (13-35); African American GFR (CKD) 103.2 (60.0-200.0); Albumin 4.3 g/dL (3.8-4.9); Alkaline Phosphatase 70 U/L (41-126); BUN/Creat Ratio 26.34 Ratio (12.00-20.00); Blood Urea Nitrogen 16.2 mg/dL (9.0-27.0); Calcium 9.9 mg/dL (8.7-10.3); Carbon Dioxide 26.7 mmol/L (20.0-27.5); Chloride 98 mmol/L (96-109); Globulin 2.3 g/dL (1.6-3.3); Glucose 83 mg/dL (70-110); Non-African American GFR(CKD) 89.1 (60.0-200.0); Potassium 4.5 mmol/L (3.5-5.5); Sodium 135 mmol/L (135-145); Total Bilirubin <0.15 mg/dL (0.30-1.20); Total Protein 6.6 g/dL (6.2-8.2)
== END | disposition home or self-care (01) ==
LOC: LABWHC1 14:10
PROVIDERS: ATTEND Psychiatry & Neurology Neurology
DX: G40.909 Epilepsy, unspecified, not intractable, without status epilepticus (principal); Z79.811 Long term (current) use of aromatase inhibitors; T42.75XA Adverse effect of unspecified antiepileptic and sedative-hypnotic drugs, initial encounter
CPT/HCPCS: 36415; 80053; 84439; 84443; 84481; 85025

== ENCOUNTER 2022-10-10 16:19 | Emergency (ER) | payer MEDICARE ==
[2022-10-10 16:54] VITALS: TEMP 97.8
--- NOTE | 2022-10-10 16:57 | ED ---
General Adult HPI - General Source: patient, family Mode of arrival: wheelchair Limitations: no limitations <Corazon Ward - Last Filed: 10/10/22 17:01> <Diony Hu - Last Filed: 10/10/22 22:09> <ArceniorobbyClarita Terri - Last Filed: 10/12/22 08:16> - General Stated complaint: poss seizure - History of Present Illness Initial comments: 72-year-old female presents to the emergency department with daughter for chief complaint of decreased ability to rouse last night. Daughter reports that the patient is more confused than normal. Her daughter reports that she takes muscle relaxers but is unsure if this is a new medication for the patient. Patient's daughter is unsure if she took more than prescribed. Patient has a history of seizures. (Corazon Ward) This is a 72-year-old female with a past medical history including hypothyroidism not on any medications,hypertension and previous seizures presents emergency Department with her daughter for episodes of altered mental status. It was reported the patient was answering and odd ways earlier in the day and stated that she was acting "odd." The patient was reportedly at her baseline today however the daughter was concerned about this so they brought her into the emergency department. It was reported the patient did take baclofen and Flexeril yesterday and was having increased lethargy and difficulty to arouse from sleep. The patient is now awake and alert, ANO 4. The patient denied any acute pain or distress. (Diony Hu) - Related Data Home Medications Medication Instructions Recorded Confirmed lisinopriL [Prinivil] 20 mg PO DAILY 11/03/20 10/10/22 OXcarbazepine [Trileptal] 150 mg PO BID 10/13/21 10/10/22 Cyclobenzaprine [Flexeril] 10 mg PO HS PRN 10/10/22 10/10/22 levETIRAcetam [Keppra] 1,500 mg PO BID 10/10/22 10/10/22 Previous Rx's Medication Instructions Recorded Cephalexin [Keflex] 500 mg PO Q12HR 1 Days #14 cap 10/11/22 Allergies Allergy/AdvReac Type Severity Reaction Status Date / Time Penicillins Allergy Unknown Verified 10/10/22 20:22 Childhood Review of Systems ROS Other: All systems not noted in ROS Statement are negative. <Corazon Ward - Last Filed: 10/10/22 17:01> ROS Other: All systems not noted in ROS Statement are negative. <Diony Hu - Last Filed: 10/10/22 22:09> ROS Other: All systems not noted in ROS Statement are negative. <ArceniorobbyClarita Terri - Last Filed: 10/12/22 08:16> ROS Statement: Those systems with pertinent positive or pertinent negative responses have been documented in the HPI. Past Medical History Past Medical History: Seizure Disorder, Thyroid Disorder Additional Past Medical History / Comment(s): "pinched nerve lower back" History of Any Multi-Drug Resistant Organisms: None Reported Past Surgical History: Tonsillectomy, Tubal Ligation Additional Past Surgical History / Comment(s): ovarian cyst and breast cyst surgery Past Anesthesia/Blood Transfusion Reactions: No Reported Reaction Past Psychological History: No Psychological Hx Reported Smoking Status: Never smoker Past Alcohol Use History: None Reported Past Drug Use History: None Reported - Past Family History Mother Family Medical History: No Reported History Additional Family Medical History / Comment(s): leukemia <Corazon Ward - Last Filed: 10/10/22 17:01> General Exam Limitations: no limitations <Corazon Ward - Last Filed: 10/10/22 17:01> Limitations: no limitations General appearance: alert, in no apparent distress Head exam: Present: atraumatic, normocephalic, normal inspection Eye exam: Present: normal appearance, PERRL Pupils: Present: normal accommodation ENT exam: Present: normal exam, normal oropharynx, mucous membranes moist Neck exam: Present: normal inspection, full ROM Respiratory exam: Present: normal lung sounds bilaterally Cardiovascular Exam: Present: regular rate, normal rhythm, normal heart sounds GI/Abdominal exam: Present: soft, normal bowel sounds Extremities exam: Present: normal inspection, full ROM Back exam: Present: normal inspection, full ROM Neurological exam: Present: alert, oriented X3, CN II-XII intact Psychiatric exam: Present: normal affect, normal mood Skin exam: Present: warm, dry <Diony Hu - Last Filed: 10/10/22 22:09> - General Exam Comments Initial Comments: Visual Physical Exam Vital signs reviewed General: Well-appearing, nontoxic, no acute distress. Head: Normocephalic, atraumatic Eyes: PERRLA, EOMI ENT: Airway patent Chest: Nonlabored breathing Skin: No visual rash, normal skin tone Neuro: Alert and oriented 3 Musculoskeletal: No gross abnormalities (Corazon Ward) Course Vital Signs 10/10/22 10/11/22 16:51 01:00 Temperature 97.8 F Pulse Rate 83 82 Respiratory 16 18 Rate Blood Pressure 139/67 186/94 O2 Sat by Pulse 98 96 Oximetry EKG Findings - EKG Comments: EKG Findings:: An EKG was obtained and was interpreted by myself showing a rate of 72, MS interval 163, QR alevism of 90 and QTC of 382. This EKG showed a normal sinus rhythm with no ST segment elevation or depression noted. <Diony Hu - Last Filed: 10/10/22 22:09> Medical Decision Making <Corazon Wrad - Last Filed: 10/10/22 17:01> <Diony Hu - Last Filed: 10/10/22 22:09> - Lab Data Result diagrams: 10/10/22 22:20 10/10/22 20:39 <Clarita Domínguez - Last Filed: 10/12/22 08:16> - Medical Decision Making I performed the quick note portion of this chart. Electronically signed by Ananda Ward PA-C (Corazon Ward) Was pt. sent in by a medical professional or institution (PRO Person, COUNTER POCKET SEWER, urgent care, hospital, or jail...) When possible be specific @ -No Did you speak to anyone other than the patient for history (EMS, parent, family, police, friend...)? What history was obtained from this source @ -Yes, patient's daughter was at the bedside and stated patient had increased lethargy and increasing sleep yesterday as well as intermittent altered mental status yesterday but was at her baseline today. Did you review nursing and triage notes (agree or disagree)? Why? @ -I reviewed and agree with nursing and triage notes Were old charts reviewed (outside hosp., previous admission, EMS record, old EKG, old radiological studies, urgent care reports/EKG's, jail records)? Report findings @ -No old charts were reviewed Differential Diagnosis (chest pain, altered mental status, abdominal pain women, abdominal pain men, vaginal bleeding, weakness, fever, dyspnea, syncope, headache, dizziness, GI bleed, back pain, seizure, CVA, palpatations, mental health)? @ -UTI, medication reaction, pneumonia EKG interpreted by me (3pts min.). @ -As above X-rays interpreted by me (1pt min.). @ -None done CT interpreted by me (1pt min.). @ -None done U/S interpreted by me (1pt. min.). @ -None done What testing was considered but not performed or refused? (CT, X-rays, U/S, labs)? Why? @ -None What meds were considered but not given or refused? Why? @ -None Did you discuss the management of the patient with other professionals (professionals i.e. , PA, COUNTER POCKET SEWER, lab, RT, psych nurse, social service coordinator, boiler maker, teacher, aoc airspace control officer, returned case inspector)? Give summary @ -No Was smoking cessation discussed for >3mins.? @ -No Was critical care preformed (if so, how long)? @ -No Were there social determinants of health that impacted care today? How? (Homelessness, low income, unemployed, alcoholism, drug addiction, transportation, low edu. Level, literacy, decrease access to med. care, long-term, rehab)? @ -No Was there de-escalation of care discussed even if they declined (Discuss DNR or withdrawal of care, Hospice)? DNR status @ -No What co-morbidities impacted this encounter? (DM, HTN, Smoking, COPD, CAD, Cancer, CVA, ARF, Chemo, Hep., AIDS, mental health diagnosis, sleep apnea, morbid obesity)? @ -Seizure disorder, HTN Was patient admitted / discharged? Hospital course, mention meds given and route, prescriptions, significant lab abnormalities, going to OR and other pertinent info. @ -The patient was seen and evaluated in emergency department. Physical exam, the patient was resting in bed without any acute distress. The patient did not complain of any acute pain or distress. Vital signs were stable. Laboratory workup was obtained however was still pending at this time. The patient be signed out to Dr. heart pending completion the laboratory workup and reeva luation. The patient was signed out in stable condition. (Diony Hu) Was patient admitted / discharged? Hospital course, mention meds given and route, prescriptions, significant lab abnormalities, going to OR and other pertinent info. @ -Patient was signed out to me pending laboratory study results. I did review the results with the patient and her daughter.. She does have a mild abnormal UA. Feel that the patient's symptoms are most consistent with medication effect. Abdomen that the patient stop taking her baclofen. Continue taking Flexeril. Take the antibiotic as directed. Follow up with her primary care doctor and return for any new or worsening symptoms. Patient was agreeable as planned. She was discharged home in stable condition Undiagnosed new problem with uncertain prognosis? @ -Yes Drug Therapy requiring intensive monitoring for toxicity (Heparin, Nitro, In sulin, Cardizem)? @ -No Were any procedures done? @ -No Diagnosis/symptom? @ -Acute encephalopathy, medication side effect, abnormal UA Acute, or Chronic, or Acute on Chronic? @ -Acute Uncomplicated (without systemic symptoms) or Complicated (systemic symptoms)? @ -complicated Side effects of treatment? @ -No Exacerbation, Progression, or Severe Exacerbation? @ -No Poses a threat to life or bodily function? How? (Chest pain, [place], [place], pneumonia, PE, COPD, DKA, ARF, appy, cholecystitis, CVA, Diverticulitis, Homicidal, Suicidal, threat to staff... and all critical care pts) @ -No (Clarita Domínguez) - Lab Data Lab Results 10/10/22 10/10/22 10/10/22 Range/Units 20:39 20:39 20:39 WBC (3.8-10.6) k/uL RBC (3.80-5.40) m/uL Hgb (11.4-16.0) gm/dL Hct (34.0-46.0) % MCV (80.0-100.0) fL MCH (25.0-35.0) pg MCHC (31.0-37.0) g/dL RDW (11.5-15.5) % Plt Count (150-450) k/uL MPV Neutrophils % % Lymphocytes % % Monocytes % % Eosinophils % % Basophils % % Neutrophils # (1.3-7.7) k/uL Lymphocytes # (1.0-4.8) k/uL Monocytes # (0-1.0) k/uL Eosinophils # (0-0.7) k/uL Basophils # (0-0.2) k/uL PT 10.9 (9.0-12.0) sec INR 1.0 (<1.2) APTT 24.8 (22.0-30.0) sec Sodium 132 L (137-145) mmol/L Potassium 4.2 (3.5-5.1) mmol/L Chloride 98 (98-107) mmol/L Carbon Dioxide 23 (22-30) mmol/L Anion Gap 11 mmol/L BUN 9 (7-17) mg/dL Creatinine 0.42 L (0.52-1.04) mg/dL Est GFR (CKD-EPI)AfAm >90 (>60 ml/min/1.73 sqM) Est GFR (CKD-EPI)NonAf >90 (>60 ml/min/1.73 sqM) Glucose 90 (74-99) mg/dL Calcium 10.3 H (8.4-10.2) mg/dL Total Bilirubin 0.5 (0.2-1.3) mg/dL AST 22 (14-36) U/L ALT 18 (4-34) U/L Alkaline Phosphatase 71 (38-126) U/L Troponin I <0.012 (0.000-0.034) ng/mL Total Protein 7.8 (6.3-8.2) g/dL Albumin 4.6 (3.5-5.0) g/dL TSH (0.465-4.680) mIU/L Urine Color Urine Appearance (Clear) Urine pH (5.0-8.0) Ur Specific Clarence (1.001-1.035) Urine Protein (Negative) Urine Glucose (UA) (Negative) Urine Ketones (Negative) Urine Blood (Negative) Urine Nitrite (Negative) Urine Bilirubin (Negative) Urine Urobilinogen (<2.0) mg/dL Ur Leukocyte Esterase (Negative) Urine RBC (0-5) /hpf Urine WBC (0-5) /hpf Ur Squamous Epith Cells (0-4) /hpf Amorphous Sediment (None) /hpf Urine Bacteria (None) /hpf Urine Mucus (None) /hpf Urine Opiates Screen (NotDetected) Ur Oxycodone Screen (NotDetected) Urine Methadone Screen (NotDetected) Ur Propoxyphene Screen (NotDetected) Ur Barbiturates Screen (NotDetected) U Tricyclic Antidepress (NotDetected) Ur Phencyclidine Scrn (NotDetected) Ur Amphetamines Screen (NotDetected) U Methamphetamines Scrn (NotDetected) U Benzodiazepines Scrn (NotDetected) Urine Cocaine Screen (NotDetected) U Marijuana (THC) Screen (NotDetected) 10/10/22 10/10/22 10/10/22 Range/Units 20:39 22:20 23:47 WBC 6.7 (3.8-10.6) k/uL RBC 5.06 (3.80-5.40) m/uL Hgb 14.6 (11.4-16.0) gm/dL Hct 43.4 (34.0-46.0) % MCV 85.9 (80.0-100.0) fL MCH 28.8 (25.0-35.0) pg MCHC 33.5 (31.0-37.0) g/dL RDW 13.2 (11.5-15.5) % Plt Count 340 (150-450) k/uL MPV 8.0 Neutrophils % 58 % Lymphocytes % 32 % Monocytes % 6 % Eosinophils % 2 % Basophils % 1 % Neutrophils # 3.9 (1.3-7.7) k/uL Lymphocytes # 2.2 (1.0-4.8) k/uL Monocytes # 0.4 (0-1.0) k/uL Eosinophils # 0.1 (0-0.7) k/uL Basophils # 0.0 (0-0.2) k/uL PT (9.0-12.0) sec INR (<1.2) APTT (22.0-30.0) sec Sodium (137-145) mmol/L Potassium (3.5-5.1) mmol/L Chloride (98-107) mmol/L Carbon Dioxide (22-30) mmol/L Anion Gap mmol/L BUN (7-17) mg/dL Creatinine (0.52-1.04) mg/dL Est GFR (CKD-EPI)AfAm (>60 ml/min/1.73 sqM) Est GFR (CKD-EPI)NonAf (>60 ml/min/1.73 sqM) Glucose (74-99) mg/dL Calcium (8.4-10.2) mg/dL Total Bilirubin (0.2-1.3) mg/dL AST (14-36) U/L ALT (4-34) U/L Alkaline Phosphatase (38-126) U/L Troponin I (0.000-0.034) ng/mL Total Protein (6.3-8.2) g/dL Albumin (3.5-5.0) g/dL TSH 1.490 (0.465-4.680) mIU/L Urine Color Yellow Urine Appearance Cloudy H (Clear) Urine pH 7.0 (5.0-8.0) Ur Specific Clarence 1.016 (1.001-1.035) Urine Protein Negative (Negative) Urine Glucose (UA) Negative (Negative) Urine Ketones 1+ H (Negative) Urine Blood Negative (Negative) Urine Nitrite Negative (Negative) Urine Bilirubin Negative (Negative) Urine Urobilinogen <2.0 (<2.0) mg/dL Ur Leukocyte Esterase Trace H (Negative) Urine RBC 2 (0-5) /hpf Urine WBC 6 H (0-5) /hpf Ur Squamous Epith Cells <1 (0-4) /hpf Amorphous Sediment Rare H (None) /hpf Urine Bacteria Rare H (None) /hpf Urine Mucus Rare H (None) /hpf Urine Opiates Screen Not Detected (NotDetected) Ur Oxycodone Screen Not Detected (NotDetected) Urine Methadone Screen Not Detected (NotDetected) Ur Propoxyphene Screen Not Detected (NotDetected) Ur Barbiturates Screen Not Detected (NotDetected) U Tricyclic Antidepress Not Detected (NotDetected) Ur Phencyclidine Scrn Not Detected (NotDetected) Ur Amphetamines Screen Not Detected (NotDetected) U Methamphetamines Scrn Not Detected (NotDetected) U Benzodiazepines Scrn Not Detected (NotDetected) Urine Cocaine Screen Not Detected (NotDetected) U Marijuana (THC) Screen Not Detected (NotDetected) Disposition <Corazon Ward - Last Filed: 10/10/22 17:01> <Diony Hu - Last Filed: 10/10/22 22:09> Is patient prescribed a controlled substance at d/c from ED?: No Time of Disposition: 01:08 <SangClarita Terri - Last Filed: 10/12/22 08:16> Clinical Impression: Encephalopathy acute, Abnormal urinalysis, Muscle relaxant overdose Disposition: HOME SELF-CARE Condition: Stable Instructions (If sedation given, give patient instructions): Altered Mental Status (ED) Additional Instructions: Please take your antibiotics as directed starting tomorrow. Stop taking the baclofen. Continue with the Flexeril. Follow up with your doctor and return should your symptoms not improve Prescriptions: Cephalexin [Keflex] 500 mg PO Q12HR 1 Days #14 cap Referrals: Andi Mosher MD [Primary Care Provider] - 1-2 days
[2022-10-10 22:36] LABS: Partial Thromboplastin Time 24.8 sec (22.0-30.0); Prothrombin Time 10.9 sec (9.0-12.0)
[2022-10-10 22:41] LABS: Basophils % (A) 1 %; Eosinophils # (A) 0.1 k/uL (0-0.7); Eosinophils % (A) 2 %; HCT 43.4 % (34.0-46.0); HGB 14.6 gm/dL (11.4-16.0); Lymphocytes # (A) 2.2 k/uL (1.0-4.8); Lymphocytes % (A) 32 %; MCH 28.8 pg (25.0-35.0); MCHC 33.5 g/dL (31.0-37.0); MCV 85.9 fL (80.0-100.0); Monocytes # (A) 0.4 k/uL (0-1.0); Monocytes % (A) 6 %; Neutrophils # (A) 3.9 k/uL (1.3-7.7); Neutrophils % (A) 58 %; Platelet Count 340 k/uL (150-450); RBC 5.06 m/uL (3.80-5.40); RDW 13.2 % (11.5-15.5); WBC 6.7 k/uL (3.8-10.6)
[2022-10-10 23:45] LABS: ALT 18 U/L (4-34); AST 22 U/L (14-36); African American GFR (CKD) >90 (>60 ml/min/1.73 sqM); Albumin 4.6 g/dL (3.5-5.0); Alkaline Phosphatase 71 U/L (38-126); Anion Gap 11 mmol/L; Blood Urea Nitrogen 9 mg/dL (7-17); Calcium 10.3 mg/dL (8.4-10.2); Carbon Dioxide 23 mmol/L (22-30); Chloride 98 mmol/L (98-107); Glucose 90 mg/dL (74-99); Non-African American GFR(CKD) >90 (>60 ml/min/1.73 sqM); Potassium 4.2 mmol/L (3.5-5.1); Sodium 132 mmol/L (137-145); Total Bilirubin 0.5 mg/dL (0.2-1.3); Total Protein 7.8 g/dL (6.3-8.2)
[2022-10-11 00:15] LABS: Amorphous Sediment,Urine Rare /hpf; Appearance,Urine Cloudy (Clear); Bacteria,Urine Rare /hpf; Bilirubin,Urine Negative (Negative); Blood,Urine Negative (Negative); Color,Urine Yellow; Glucose,Urine (UA) Negative (Negative); Ketones,Urine 1+ (Negative); Leukocyte Esterase,Urine Trace (Negative); Mucus,Urine Rare /hpf; Nitrite,Urine Negative (Negative); Protein,Urine Negative (Negative); RBC,Urine 2 /hpf (0-5); Specific Gravity,Urine 1.016 (1.001-1.035); Squamous Epithelial Cell,Urine <1 /hpf (0-4); Urobilinogen,Urine <2.0 mg/dL (<2.0); WBC,Urine 6 /hpf (0-5)
[2022-10-11 00:35] LABS: Amphetamine Screen,Urine Not Detected (NotDetected); Barbiturate Screen,Urine Not Detected (NotDetected); Benzodiazepines Screen,Urine Not Detected (NotDetected); Cocaine Screen,Urine Not Detected (NotDetected); Methadone Screen, Urine Not Detected (NotDetected); Opiate Screen,Urine Not Detected (NotDetected); Oxycodone Screen, Urine Not Detected (NotDetected); Phencyclidine Screen,Urine Not Detected (NotDetected); Tricyclic Antidepressant,Urine Not Detected (NotDetected); Urn Cannabinoid Scrn Not Detected (NotDetected)
[2022-10-11] MEDS ORDERED: cefTRIAXone IN SWFI 1,000 MG/10 ML SYRINGE IVP STA (01:04)
[2022-10-11 01:06] VITALS: BP 186/94; PULSE 82; RESP 18
== END 2022-10-11 01:23 | disposition home or self-care (01) ==
LOC: EC 16:19
DX: T48.1X1A Poisoning by skeletal muscle relaxants [neuromuscular blocking agents], accidental (unintentional), initial encounter (principal); G40.909 Epilepsy, unspecified, not intractable, without status epilepticus; G93.40 Encephalopathy, unspecified; R82.90 Unspecified abnormal findings in urine; Z88.0 Allergy status to penicillin
CPT/HCPCS: 36415; 80053; 84443; 84484; 85025; 85610; 85730; 81001; 80306; 99284; 96374; J0696; 93005

== ENCOUNTER → 2023-01-10 | Outpatient (CLI) | payer MEDICARE | END | disposition home or self-care (01) | LOC: LABWHC1 14:43 | PROVIDERS: ATTEND Psychiatry & Neurology Neurology | DX: G62.9 Polyneuropathy, unspecified (principal) | CPT/HCPCS: 36415; 82607; 83036 ==

== ENCOUNTER → 2023-06-25 | Outpatient (CLI) | payer MEDICARE ==
--- NOTE | 2023-06-25 17:35 | US ---
EXAMINATION TYPE: US venous doppler duplex LE LT DATE OF EXAM: 06/25/2023 3:18 PM COMPARISON: NONE CLINICAL INDICATION: Female, 73 years old with history of I80.9 PHLEBITIS AND THROMBOPHLEBITIS OF UNS PECIFIE; No hx of DVT. Patient does not take blood thinners. SIDE PERFORMED: Left TECHNIQUE: The lower extremity deep venous system is examined utilizing real time linear array sonog jayden with graded compression, doppler sonography and color-flow sonography. VESSELS IMAGED: Common Femoral Vein Deep Femoral Vein Greater Saphenous Vein * Femoral Vein Popliteal Vein Small Saphenous Vein * Proximal Calf Veins (* superficial vessels) Left Leg: No evidence of DVT. IMPRESSION: No evidence of DVT in the left lower extremity imaged from the groin to the upper calf.
== END | disposition home or self-care (01) ==
LOC: RADUSWWP 14:49
PROVIDERS: ATTEND Orthopaedic Surgery
DX: I80.9 Phlebitis and thrombophlebitis of unspecified site (principal); Z47.1 Aftercare following joint replacement surgery; M17.11 Unilateral primary osteoarthritis, right knee; M25.562 Pain in left knee; M25.561 Pain in right knee; Z96.652 Presence of left artificial knee joint

== ENCOUNTER → 2024-01-04 | Outpatient (CLI) | payer MEDICARE ==
[2024-01-05 07:36] LABS: Basophils # (A) 0.07 X 10*3/uL (0.00-0.10); Basophils % (A) 1.1 %; Eosinophils # (A) 0.12 X 10*3/uL (0.04-0.35); Eosinophils % (A) 1.8 %; HCT 41.2 % (37.2-46.3); HGB 13.8 g/dL (12.0-15.0); Lymphocytes # (A) 1.49 X 10*3/uL (0.90-5.00); Lymphocytes % (A) 22.7 %; MCH 29.9 pg (27.0-32.0); MCHC 33.5 g/dL (32.0-37.0); MCV 89.2 FL (80.0-97.0); Mean Platelet Volume 10.4 FL (9.5-12.2); Monocytes # (A) 0.41 X 10*3/uL (0.20-1.00); Monocytes % (A) 6.3 %; NRBC Per 100 WBC 0 X 10*3/uL (0.00-0.01); Neutrophils # (A) 4.44 X 10*3/uL (1.80-7.70); Neutrophils % (A) 67.8 %; Platelet Count 296 X 10*3/uL (140-440); RBC 4.62 X 10*6/uL (4.10-5.20); RDW 12.5 % (11.5-14.5); WBC 6.55 X 10*3/uL (4.50-10.00)
[2024-01-05 08:43] LABS: ALT 11 U/L (8-44); AST 16 U/L (13-35); Albumin 4.5 g/dL (3.8-4.9); Albumin/Globulin Ratio 1.96 Ratio (1.60-3.17); Alkaline Phosphatase 65 U/L (41-126); Blood Urea Nitrogen 16.8 mg/dL (9.0-27.0); Calcium 9.7 mg/dL (8.7-10.3); Chloride 96 mmol/L (96-109); Globulin 2.3 g/dL (1.6-3.3); Glucose 95 mg/dL (70-110); Potassium 4.7 mmol/L (3.5-5.5); Sodium 132 mmol/L (135-145); Total Bilirubin 0.3 mg/dL (0.3-1.2); Total Protein 6.8 g/dL (6.2-8.2)
[2024-01-06 06:52] LABS: Levetiracetam (Keppra) 36.5 ug/mL (3.0-60.0)
== END | disposition home or self-care (01) ==
LOC: LABWHC1 09:35
PROVIDERS: ATTEND Psychiatry & Neurology Neurology
DX: G40.909 Epilepsy, unspecified, not intractable, without status epilepticus (principal); T42.75XA Adverse effect of unspecified antiepileptic and sedative-hypnotic drugs, initial encounter
CPT/HCPCS: 36415; 80053; 80177; 80183; 82607; 84207; 84443; 85025

== ENCOUNTER 2024-03-20 14:31 | Emergency (ER) | payer MEDICARE ==
[2024-03-20 14:38] VITALS: PULSE 87; RESP 18; TEMP 97.9
--- NOTE | 2024-03-20 15:42 | US ---
EXAMINATION TYPE: US venous doppler duplex LE RT DATE OF EXAM: 03/20/2024 3:29 PM COMPARISON: NONE CLINICAL INDICATION: Female, 73 years old with history of Leg pain and swelling; pt states pain and b ruise on right calf, Pain TECHNIQUE: The lower extremity deep venous system is examined utilizing real time linear array sonog jayden with graded compression, color doppler sonography, and spectral doppler. SIDE PERFORMED: Right FINDINGS: VESSELS IMAGED: Common Femoral Vein Deep Femoral Vein Greater Saphenous Vein * Femoral Vein Popliteal Vein Small Saphenous Vein * Proximal Calf Veins (* superficial vessels) Right Leg: No evidence for DVT, Color Doppler imaging shows patency of the vessels. Spectral wavefor ms are within normal limits. A prominent but benign-appearing lymph node in the right groin is noted. IMPRESSION: 1. No evidence of deep vein thrombosis of the right lower extremity. [facility], , 03/20/2024 3:40 PM
--- NOTE | 2024-03-20 15:52 | ED ---
Extremity Problem HPI - General Chief complaint: Extremity Problem,Nontraumatic Stated complaint: right leg redness and swelling Time Seen by Provider: 03/20/24 14:43 Source: patient, family, RN notes reviewed Mode of arrival: ambulatory Limitations: physical limitation - History of Present Illness Initial comments: This is a 73-year-old female who presents to the emergency department for right leg pain. She has been dealing with soreness to the right leg for the last few weeks. States that she occasionally notices mild swelling with this. 2 days ago she started to notice some red splotches. States that orthopedics advised she come here to rule out a DVT. Denies any history of blood clots. Not taking any blood thinners. Denies any chest pain or shortness of breath. - Related Data Home Medications Medication Instructions Recorded Confirmed lisinopriL [Prinivil] 20 mg PO DAILY 11/03/20 10/10/22 OXcarbazepine [Trileptal] 150 mg PO BID 10/13/21 10/10/22 Cyclobenzaprine [Flexeril] 10 mg PO HS PRN 10/10/22 10/10/22 levETIRAcetam [Keppra] 1,500 mg PO BID 10/10/22 10/10/22 Previous Rx's Medication Instructions Recorded Cephalexin [Keflex] 500 mg PO Q12HR 1 Days #14 cap 10/11/22 Allergies Allergy/AdvReac Type Severity Reaction Status Date / Time Penicillins Allergy Unknown Verified 03/20/24 14:35 Childhood Review of Systems ROS Statement: Those systems with pertinent positive or pertinent negative responses have been documented in the HPI. ROS Other: All systems not noted in ROS Statement are negative. Past Medical History Past Medical History: Seizure Disorder, Thyroid Disorder Additional Past Medical History / Comment(s): "pinched nerve lower back" History of Any Multi-Drug Resistant Organisms: None Reported Past Surgical History: Tonsillectomy, Tubal Ligation Additional Past Surgical History / Comment(s): ovarian cyst and breast cyst surgery Past Anesthesia/Blood Transfusion Reactions: No Reported Reaction Past Psychological History: No Psychological Hx Reported Smoking Status: Never smoker Past Alcohol Use History: None Reported Past Drug Use History: None Reported - Past Family History Mother Family Medical History: No Reported History Additional Family Medical History / Comment(s): leukemia General Exam Limitations: no limitations General appearance: alert, in no apparent distress Head exam: Present: atraumatic, normocephalic, normal inspection Respiratory exam: Present: normal lung sounds bilaterally. Absent: respiratory distress, wheezes, rales, rhonchi, stridor Cardiovascular Exam: Present: regular rate, normal rhythm, normal heart sounds. Absent: systolic murmur, diastolic murmur, rubs, gallop, clicks Extremities exam: Present: other (No swelling or tenderness in the right calf. Some areas of erythema that appear more like a razor burn. 2+ DP and PT pulses) Neurological exam: Present: alert, oriented X3, CN II-XII intact Psychiatric exam: Present: normal affect, normal mood Skin exam: Present: warm, dry, intact, normal color. Absent: rash Course Vital Signs 03/20/24 03/20/24 14:35 16:37 Temperature 97.9 F Pulse Rate 87 Respiratory 18 Rate Blood Pressure 209/89 179/111 O2 Sat by Pulse 99 Oximetry Medical Decision Making - Medical Decision Making This is a 73 year old female who presents to the emergency department for left leg pain. Was pt. sent in by a medical professional or institution? @ -No Did you speak to anyone other than the patient for history? @ -No Did you review nursing and triage notes? @ -Yes, and I agree, it is accurate with regards to the patient's symptoms. Were old charts reviewed? @ -No Differential Diagnosis? @ -Differential Musculoskeletal Muscular strain, contusion, ligament sprain, fracture, arthritis, septic arth ritis, bursitis, cellulitis, muscle spasm, nerve compression, DVT, arterial occlusion, herpes zoster, electrolyte abnormality, tumor.... This is not meant to be in all inclusive list EKG interpreted by me (3pts min.)? @ -Not obtained X-rays interpreted by me (1pt min.)? @ -Not obtained CT interpreted by me (1pt min.)? @ -Not obtained U/S interpreted by me (1pt. min.)? @ -Duplex ultrasound of the right lower extremity obtained. My interpretation identifies no evidence of a DVT. What testing was considered but not performed? (CT, X-rays, U/S, labs)? Why? @ -None What meds were considered but not given? Why? @ -None Did you discuss the management of the patient with other professionals? @ -No Did you reconcile home meds? @ -No Was smoking cessation discussed for >3mins.? @ -No Was critical care preformed (if so, how long)? @ -No Were there social determinants of health that impacted care today? How? (Homelessness, low income, unemployed, alcoholism, drug addiction, transportation, low edu. Level, literacy, decrease access to med. care, longterm, rehab)? @ -No Was there de-escalation of care discussed even if they declined? (Discuss DNR or withdrawal of care, Hospice)? @ -No What co-morbidities impacted this encounter? (DM, HTN, Smoking, COPD, CAD, Cancer, CVA, Hep., AIDS, mental health diagnosis, sleep apnea, morbid obesity)? @ -None Was patient admitted / discharged? @ -Discharged. Duplex ultrasound of the right lower extremity obtained revealing no evidence of a DVT. Exam is relatively unremarkable. There is no swelling or tenderness. She had minor red splotching that looked more along the lines of something like razor burn. Advised she follow back up with her PCP or orthopedics for reevaluation and alternate with ibuprofen and Tylenol as needed for pain relief. Patient discharged home in stable condition. Case discussed with ED attending Dr. Daily. Return precautions reviewed in depth, the patient is instructed to return to the emergency department with any new, worsening, or concerning symptoms. Patient verbalized understanding. Undiagnosed new problem with uncertain prognosis? @ -None Drug Therapy requiring intensive monitoring for toxicity (Heparin, Nitro, Insulin, Cardizem)? @ -None Were any procedures done? @ -None Diagnosis/symptom? @ -Right leg pain Acute, or Chronic, or Acute on Chronic? @ -Acute Uncomplicated (without systemic symptoms) or Complicated (systemic symptoms)? @ -Uncomplicated Side effects of treatment? @ -None Exacerbation, Progression, or Severe Exacerbation] @ -Not applicable Poses a threat to life or bodily function? @ -No - Radiology Data Radiology results: report reviewed, image reviewed Disposition Clinical Impression: Right leg pain Disposition: HOME SELF-CARE Instructions (If sedation given, give patient instructions): Leg Pain (ED) Additional Instructions: Return to the emergency department with any new, worsening, or concerning symptoms. Alternate with ibuprofen and Tylenol as needed for pain relief. Follow up with your primary care provider and orthopedics. Is patient prescribed a controlled substance at d/c from ED?: No Referrals: None,Stated [Primary Care Provider] - 1-2 days Time of Disposition: 16:26
[2024-03-20 16:38] VITALS: BP 179/111
== END 2024-03-20 16:38 | disposition home or self-care (01) ==
LOC: EC 14:31
DX: M79.662 Pain in left lower leg (principal); Z88.0 Allergy status to penicillin
CPT/HCPCS: 99283

== ENCOUNTER 2024-08-10 11:48 | Inpatient (IN) | payer MEDICARE ==
--- NOTE | 2024-08-10 12:26 | ED ---
Extremity Problem HPI - General Chief complaint: Extremity Problem,Nontraumatic Stated complaint: Post-op R knee issue Time Seen by Provider: 08/10/24 12:21 Source: patient, family, RN notes reviewed Mode of arrival: ambulatory Limitations: no limitations - History of Present Illness Initial comments: 74-year-old female presenting for right knee pain status post right knee replacement [address] Garcia. States she is having generalized knee p ain that radiates up to the right hip. She also reports bruising in the thigh area for the past couple of days. Denies redness or drainage from the incision site. Denies fevers, chills, nausea, vomiting. She has been taking [place], Tylenol, and Advil which minimally relieves pain. Her next follow-up appointment with Dr. Garcia is on August 18. Denies blood thinners. She is also requesting a urinalysis today as she states she recently was treated for UTI and wants to make sure it is cleared up. - Related Data Home Medications Medication Instructions Recorded Confirmed lisinopriL [Prinivil] 20 mg PO DAILY 11/03/20 10/10/22 OXcarbazepine [Trileptal] 150 mg PO BID 10/13/21 10/10/22 Cyclobenzaprine [Flexeril] 10 mg PO HS PRN 10/10/22 10/10/22 levETIRAcetam [Keppra] 1,500 mg PO BID 10/10/22 10/10/22 Previous Rx's Medication Instructions Recorded Cephalexin [Keflex] 500 mg PO Q12HR 1 Days #14 cap 10/11/22 Allergies Allergy/AdvReac Type Severity Reaction Status Date / Time Penicillins Allergy Unknown Verified 08/10/24 11:55 Childhood Review of Systems ROS Statement: Those systems with pertinent positive or pertinent negative responses have been documented in the HPI. ROS Other: All systems not noted in ROS Statement are negative. Past Medical History Past Medical History: Seizure Disorder, Thyroid Disorder Additional Past Medical History / Comment(s): "pinched nerve lower back" History of Any Multi-Drug Resistant Organisms: None Reported Past Surgical History: Joint Replacement, Tonsillectomy, Tubal Ligation Additional Past Surgical History / Comment(s): ovarian cyst and breast cyst surgery Past Anesthesia/Blood Transfusion Reactions: No Reported Reaction Past Psychological History: No Psychological Hx Reported Smoking Status: Never smoker Past Alcohol Use History: None Reported Past Drug Use History: None Reported - Past Family History Mother Family Medical History: No Reported History Additional Family Medical History / Comment(s): leukemia General Exam Limitations: no limitations General appearance: alert, in no apparent distress Head exam: Present: atraumatic, normocephalic, normal inspection Eye exam: Present: normal appearance, PERRL, EOMI. Absent: scleral icterus, conjunctival injection, periorbital swelling GI/Abdominal exam: Present: soft, normal bowel sounds. Absent: distended, tenderness, guarding, rebound, rigid Rectal exam: Present: heme (+) stool. Absent: deferred (Rectal exam chaperoned by JESSI Gardner. No tenderness or hemorrhoids palpated. There is black stool tip of glove) Right Hip exam: Present: normal inspection, full ROM. Absent: tenderness, swelling Upper Leg exam: Present: full ROM, tenderness, swelling. Absent: normal inspection (Mild contusions present in medial upper leg with no warmth or drainage) Knee exam: Present: full ROM, tenderness, swelling. Absent: normal inspection (There is a well-healing vertical incision at anterior knee with no surrounding erythema or drainage) Lower Leg exam: Present: normal inspection, full ROM. Absent: tenderness, swelling Ankle exam: Present: normal inspection, full ROM. Absent: tenderness, swelling Foot/Toe exam: Present: normal inspection. Absent: tenderness, swelling Neurovascular tendon exam: Present: no vascular compromise. Absent: pulse deficit, abnormal cap refill, motor deficit Neurological exam: Present: alert, oriented X3 Psychiatric exam: Present: normal affect, normal mood Skin exam: Present: warm, dry, intact, normal color. Absent: rash Course Vital Signs 08/10/24 11:51 Temperature 98.4 F Pulse Rate 64 Respiratory 18 Rate Blood Pressure 146/65 O2 Sat by Pulse 96 Oximetry Medical Decision Making - Medical Decision Making Was pt. sent in by a medical professional or institution ([employer], [employer], urgent care, hospital, or snf...) When possible be specific @ -No Did you speak to anyone other than the patient for history (EMS, parent, family, police, friend...)? What history was obtained from this source @ -No Did you review nursing and triage notes (agree or disagree)? Why? @ -I reviewed and agree with nursing and triage notes Were old charts reviewed (outside hosp., previous admission, EMS record, old EKG, old radiological studies, urgent care reports/EKG's, snf records)? Report findings @ -No old charts were reviewed Differential Diagnosis (chest pain, altered mental status, abdominal pain women, abdominal pain men, vaginal bleeding, weakness, fever, dyspnea, syncope, headache, dizziness, GI bleed, back pain, seizure, CVA, palpatations, mental health, musculoskeletal)? @ -Differential Musculoskeletal Muscular strain, contusion, ligament sprain, fracture, arthritis, septic arthritis, bursitis, cellulitis, muscle spasm, nerve compression, DVT, arterial occlusion, herpes zoster, electrolyte abnormality, tumor.... This is not meant to be in all inclusive list EKG interpreted by me (3pts min.). @ -None X-rays interpreted by me (1pt min.). @ -None done CT interpreted by me (1pt min.). @ -None done U/S interpreted by me (1pt. min.). @ -Ultrasound right lower extremity negative for DVT What testing was considered but not performed or refused? (CT, X-rays, U/S, labs)? Why? @ -None What meds were considered but not given or refused? Why? @ -None Did you discuss the management of the patient with other professionals (professionals i.e. , PA, [employer], lab, RT, psych nurse, psych social worker, core shaper, teacher, budget officer, case resource manager)? Give summary @ -I spoke with [facility] who accepts admission for GI bleed with consultation to Dr. Russo Was smoking cessation discussed for >3mins.? @ -No Was critical care preformed (if so, how long)? @ -No Were there social determinants of health that impacted care today? How? (Homelessness, low income, unemployed, alcoholism, drug addiction, transportation, low edu. Level, literacy, decrease access to med. care, residential, rehab)? @ -No Was there de-escalation of care discussed even if they declined (Discuss DNR or withdrawal of care, Hospice)? DNR status @ -No What co-morbidities impacted this encounter? (DM, HTN, Smoking, COPD, CAD, Cancer, CVA, ARF, Chemo, Hep., AIDS, mental health diagnosis, sleep apnea, morbid obesity)? @ -None Was patient admitted / discharged? Hospital course, mention meds given and route, prescriptions, significant lab abnormalities, going to OR and other pertinent info. @ - admitted. 74-year-old female presenting for right knee pain status post right knee replacement 5 days ago. Neurovascularly intact. Patient was provided with [place] and Toradol in ER for supportive care. No sign of bacterial infection. Ultrasound right lower extremity negative for DVT. Lab work remarkable for hemoglobin of 7. Normal white blood cell count. Patient states she had presurgical lab work and hemoglobin was 11 at that time. Patient does endorse black stool for the past week. Denies abdominal pain, fevers, hematemesis. Denies blood thinners. Positive Hemoccult. Patient will be admitted to medicine with consultation to Dr. Russo for upper GI bleed. Case was discussed with my ED attending Dr. Esparza. Undiagnosed new problem with uncertain prognosis? @ -No Drug Therapy requiring intensive monitoring for toxicity (Heparin, Nitro, Insulin, Cardizem)? @ -No Were any procedures done? @ -No Diagnosis/symptom? @ -Upper GI bleed Acute, or Chronic, or Acute on Chronic? @ -Acute Uncomplicated (without systemic symptoms) or Complicated (systemic symptoms)? @ -Uncomplicated Side effects of treatment? @ -No Exacerbation, Progression, or Severe Exacerbation? @ -No Poses a threat to life or bodily function? How? (Chest pain, [place], [place], pneumonia, PE, COPD, DKA, ARF, appy, cholecystitis, CVA, Diverticulitis, Homicidal, Suicidal, threat to staff... and all critical care pts) @ -Yes - Lab Data Result diagrams: 08/10/24 12:39 08/10/24 12:39 Lab Results 08/10/24 08/10/24 08/10/24 Range/Units 12:39 12:39 14:44 WBC 5.84 (4.50-10.00) 10*3/uL RBC 2.35 L (4.10-5.20) 10*6/uL Hgb 7.0 L (12.0-15.0) g/dL Hct 20.7 L (37.2-46.3) % MCV 88.1 (80.0-97.0) fL MCH 29.8 (27.0-32.0) pg MCHC 33.8 (32.0-37.0) g/dL Plt Count 265 (140-440) 10*3/uL MPV 9.9 (9.5-12.2) fL Immature Gran % (Auto) 0 % Neutrophils % 72.3 % Lymphocytes % 19.3 % Monocytes % 6.2 % Eosinophils % 1.7 % Basophils % 0.5 % Immature Gran # 0.00 (0.00-0.04) 10*3/uL Neutrophils # 4.22 (1.80-7.70) 10*3/uL Lymphocytes # 1.13 (0.90-5.00) 10*3/uL Monocytes # 0.36 (0.20-1.00) 10*3/uL Eosinophils # 0.10 (0.04-0.35) 10*3/uL Basophils # 0.03 (0.00-0.10) 10*3/uL Sodium 135 L (137-145) mmol/L Potassium 4.6 (3.5-5.1) mmol/L Chloride 103 (98-107) mmol/L Carbon Dioxide 29 (22-30) mmol/L Anion Gap 3 mmol/L BUN 23 H (7-17) mg/dL Creatinine 0.50 L (0.52-1.04) mg/dL Est GFR (CKD-EPI)AfAm >90 (>60 ml/min/1.73 sqM) Est GFR (CKD-EPI)NonAf >90 (>60 ml/min/1.73 sqM) Glucose 100 H (74-99) mg/dL Calcium 9.4 (8.4-10.2) mg/dL Total Bilirubin 0.7 (0.2-1.3) mg/dL AST 27 (14-36) U/L ALT 16 (4-34) U/L Alkaline Phosphatase 45 (38-126) U/L Total Protein 6.1 L (6.3-8.2) g/dL Albumin 3.5 (3.5-5.0) g/dL Urine Color Urine Appearance (Clear) Urine pH (5.0-8.0) Ur Specific [place] (1.001-1.035) Urine Protein (Negative) Urine Glucose (UA) (Negative) Urine Ketones (Negative) Urine Blood (Negative) Urine Nitrite (Negative) Urine Bilirubin (Negative) Urine Urobilinogen (<2.0) mg/dL Ur Leukocyte Esterase (Negative) Stool Occult Blood Positive H (Negative) 08/10/24 Range/Units 14:52 WBC (4.50-10.00) 10*3/uL RBC (4.10-5.20) 10*6/uL Hgb (12.0-15.0) g/dL Hct (37.2-46.3) % MCV (80.0-97.0) fL MCH (27.0-32.0) pg MCHC (32.0-37.0) g/dL Plt Count (140-440) 10*3/uL MPV (9.5-12.2) fL Immature Gran % (Auto) % Neutrophils % % Lymphocytes % % Monocytes % % Eosinophils % % Basophils % % Immature Gran # (0.00-0.04) 10*3/uL Neutrophils # (1.80-7.70) 10*3/uL Lymphocytes # (0.90-5.00) 10*3/uL Monocytes # (0.20-1.00) 10*3/uL Eosinophils # (0.04-0.35) 10*3/uL Basophils # (0.00-0.10) 10*3/uL Sodium (137-145) mmol/L Potassium (3.5-5.1) mmol/L Chloride (98-107) mmol/L Carbon Dioxide (22-30) mmol/L Anion Gap mmol/L BUN (7-17) mg/dL Creatinine (0.52-1.04) mg/dL Est GFR (CKD-EPI)AfAm (>60 ml/min/1.73 sqM) Est GFR (CKD-EPI)NonAf (>60 ml/min/1.73 sqM) Glucose (74-99) mg/dL Calcium (8.4-10.2) mg/dL Total Bilirubin (0.2-1.3) mg/dL AST (14-36) U/L ALT (4-34) U/L Alkaline Phosphatase (38-126) U/L Total Protein (6.3-8.2) g/dL Albumin (3.5-5.0) g/dL Urine Color Yellow Urine Appearance Clear (Clear) Urine pH 5.0 (5.0-8.0) Ur Specific [place] 1.026 (1.001-1.035) Urine Protein Negative (Negative) Urine Glucose (UA) Negative (Negative) Urine Ketones Trace H (Negative) Urine Blood Negative (Negative) Urine Nitrite Negative (Negative) Urine Bilirubin Negative (Negative) Urine Urobilinogen <2.0 (<2.0) mg/dL Ur Leukocyte Esterase Negative (Negative) Stool Occult Blood (Negative) Disposition Clinical Impression: Upper GI bleed Disposition: ADMITTED IP TO THIS HOSP Referrals: None,Stated [Primary Care Provider] - 1-2 days Time of Disposition: 15:33
[2024-08-10 12:52] LABS: Basophils # (A) 0.03 10*3/uL (0.00-0.10); Basophils % (A) 0.5 %; Eosinophils % (A) 1.7 %; HCT 20.7 % (37.2-46.3); Lymphocytes # (A) 1.13 10*3/uL (0.90-5.00); Lymphocytes % (A) 19.3 %; MCH 29.8 pg (27.0-32.0); MCHC 33.8 g/dL (32.0-37.0); MCV 88.1 fL (80.0-97.0); Mean Platelet Volume 9.9 fL (9.5-12.2); Monocytes # (A) 0.36 10*3/uL (0.20-1.00); Monocytes % (A) 6.2 %; Neutrophils # (A) 4.22 10*3/uL (1.80-7.70); Neutrophils % (A) 72.3 %; Platelet Count 265 10*3/uL (140-440); RBC 2.35 10*6/uL (4.10-5.20); RDW 13.3 % (11.5-14.5); WBC 5.84 10*3/uL (4.50-10.00)
[2024-08-10] MEDS: HYDROcodone/APAP 7.5-325MG 1 EACH TAB PO ONE (12:56)
[2024-08-10 13:00] LABS: ALT 16 U/L (4-34); African American GFR (CKD) >90 (>60 ml/min/1.73 sqM); Albumin 3.5 g/dL (3.5-5.0); Anion Gap 3 mmol/L; Blood Urea Nitrogen 23 mg/dL (7-17); Calcium 9.4 mg/dL (8.4-10.2); Carbon Dioxide 29 mmol/L (22-30); Chloride 103 mmol/L (98-107); Glucose 100 mg/dL (74-99); Non-African American GFR(CKD) >90 (>60 ml/min/1.73 sqM); Sodium 135 mmol/L (137-145); Total Bilirubin 0.7 mg/dL (0.2-1.3); Total Protein 6.1 g/dL (6.3-8.2)
[2024-08-10 13:15] LABS: AST 27 U/L (14-36); Alkaline Phosphatase 45 U/L (38-126); Potassium 4.6 mmol/L (3.5-5.1)
[2024-08-10] MEDS: KETOROLAC 15 MG/ML 1 ML VIAL IVP STA (13:34)
--- NOTE | 2024-08-10 13:47 | US ---
EXAMINATION TYPE: US venous doppler duplex LE RT DATE OF EXAM: 08/10/2024 1:35 PM COMPARISON: US 03/20/24 CLINICAL INDICATION: Female, 74 years old with history of pain; pain and medial mid thigh bruising af ter knee replacement last Saturday, Pain TECHNIQUE: The lower extremity deep venous system is examined utilizing real time linear array sonog jayden with graded compression, color doppler sonography, and spectral doppler. SIDE PERFORMED: Right FINDINGS: VESSELS IMAGED: Common Femoral Vein Deep Femoral Vein Greater Saphenous Vein * Femoral Vein Popliteal Vein Small Saphenous Vein * Proximal Calf Veins (* superficial vessels) Right Leg: Negative for DVT, Color Doppler imaging shows patency of the vessels. Spectral waveforms are within normal limits. Exam limited due to edema and body habitus. Curvilinear probe used for better penetration. Poor visua lization of distal femoral vein, and non-visualization of proximal calf veins. IMPRESSION: 1. No ultrasound evidence of deep venous thrombosis right lower extremity. [facility], , 08/10/2024 1:45 PM
[2024-08-10 15:08] LABS: Appearance,Urine Clear (Clear); Bilirubin,Urine Negative (Negative); Blood,Urine Negative (Negative); Color,Urine Yellow; Glucose,Urine (UA) Negative (Negative); Ketones,Urine Trace (Negative); Leukocyte Esterase,Urine Negative (Negative); Nitrite,Urine Negative (Negative); Protein,Urine Negative (Negative); Specific Gravity,Urine 1.026 (1.001-1.035); Urobilinogen,Urine <2.0 mg/dL (<2.0)
[2024-08-10] MEDS ORDERED: ONDANSETRON 4 MG/2 ML VIAL IVP PRN (15:33)
[2024-08-10] MEDS ORDERED: NALOXONE 0.4 MG/ML 1 ML VIAL IV PRN (15:33)
[2024-08-10] MEDS ORDERED: ACETAMINOPHEN TAB 325 MG TAB PO PRN (15:33)
[2024-08-10] MEDS: PANTOPRAZOLE 40 MG/10 ML VIAL IVP STA (15:47)
[2024-08-10] MEDS ORDERED: SENNOSIDES 8.6 MG TAB PO PRN (16:58)
--- NOTE | 2024-08-10 17:08 | P.HPIM ---
History of Present Illness H&P Date: 08/10/24 Chief Complaint: knee pain Patient is a 74 year old female with recent history of right knee replacement [address] [place] presented to the ED with right knee pain. Patient states having generalized knee pain that radiates up to the right thigh. Associated with that she reports bruising in the thigh area for the past couple of days. She mentions that before her surgery her Hb was around 11, approximately 2-3 weeks ago. She reports having black tarry stools since her surgery 5 days ago. She has been taking NSAIDS along with tylenol and [place] round the clock. Current ly taking Advil [id number] mg a day. And also took Aspirin once for analgesia. Denies being on blood thinners. Additionally, she mentions having a UTI in June and wanted to get urinalysis to see if it cleared up. Denies any UTI symptoms. Denies hematuria, hemoptysis. She denies having a colonoscopy in the past. Denies fever, chills, shortness of breath, cough, chest pain, palpitations, abdominal pain, nausea, vomiting, hematuria, dysuria, headache, slurred speech, numbness, tingling, dizziness, lightheadedness, blurred vision, double vision. ED documentation reviewed. In the ED patient was treated with Ketorolac and pantoprazole. Vitals on admission T 98.4 F, [place] 64 bpm, RR 18, BP 146/65, SpO2 96% on room air Most recent vitals temperature 98.1 F, MN 94 bpm, RR 20, BP 172/71, oxygen saturation 95% on room air Venous Doppler study shows no ultrasound evidence of DVT right lower extremity Labs on admission show WBC 5.84, hemoglobin 7, MCV 88.1, platelet count 265, sodium 135, creatinine 0.5, potassium 4.6 UA shows trace ketones Stool occult blood is positive Review of systems: Pertinent positives and negatives as discussed in HPI, a complete review of systems was performed and all other systems are negative. Patient admitted to internal medicine service Physical examination: Vital signs reviewed General: nontoxic, no distress, appears at stated age Derm: warm, dry, intact Head: atraumatic, normocephalic, symmetric Eyes: EOMI, anicteric sclera Mouth: no lip lesion, mucus membranes moist Cardiovascular: S1 S2 reg, no murmur Lungs: CTA bilateral, no rhonchi, no rales, no accessory muscle use Abdominal: soft, non-tender to palpation Extremities: HUNTER wraps b/l LE, right knee tender to palpation, bruise on the right inner thigh Neuro: Alert, Oriented, Gross neurological examination did not reveal any focal deficits. Psych: well appearing, appropriate affect Assessment/Plan: Patient is a 74 year old female with recent history of right knee replacement 5 days ago presented to the ED with right knee pain. She was found to have Hb of 7 and positive stool occult blood. She has admitted for upper GI bleed. Active: #. Upper GI bleed #. NSAID induced gastropathy Patient taking 1200 mg of Advil a day and reports black tarry stools Hb 7 Stool occult blood is positive Start Protonix 40 mg BID Transfuse for Hb<7 Monitor CBC N.p.o. after midnight Consult general surgery #. Post op pain, recent right knee replacement surgery Tylenol, [place], Morphine for pain management #. Mild hyponatremia Na 135 Monitor BMP Chronic: #. Hypertension #. Seizure disorder #. Constipation Resume lisinopril 20 mg p.o. daily, levetiracetam 1500 mg p.o. twice daily, oxcarbazepine 150 mg p.o. twice daily, oxybutynin 5 mg p.o. twice daily, Senokot 17.2 mg PO HS PRN F: None E: Replete as required N: Heart healthy diet, NPO after midnight DVT prophylaxis: Not indicated due to GI bleed GI prophylaxis: Protonix 40 mg BID The patient is admitted with an anticipated more than 2 midnight stay for evaluation of anemia CODE STATUS: FULL CODE Discussed with: Patient Anticipated discharge place: Pending clinical course Dictation was produced using [employer] dictation software. please excuse any grammatical, word or spelling errors. Paola Casiano MD PGY-1 IM Past Medical History Past Medical History: Seizure Disorder, Thyroid Disorder Additional Past Medical History / Comment(s): "pinched nerve lower back" History of Any Multi-Drug Resistant Organisms: None Reported Past Surgical History: Joint Replacement, Tonsillectomy, Tubal Ligation Additional Past Surgical History / Comment(s): ovarian cyst and breast cyst surgery Past Anesthesia/Blood Transfusion Reactions: No Reported Reaction Past Psychological History: No Psychological Hx Reported Smoking Status: Never smoker Past Alcohol Use History: None Reported Past Drug Use History: None Reported - Past Family History Mother Family Medical History: No Reported History Additional Family Medical History / Comment(s): leukemia Medications and Allergies Home Medications Medication Instructions Recorded Confirmed Type lisinopriL [Prinivil] 20 mg PO DAILY 11/03/20 08/10/24 History OXcarbazepine [Trileptal] 150 mg PO BID 10/13/21 08/10/24 History levETIRAcetam [Keppra] 1,500 mg PO BID 10/10/22 08/10/24 History HYDROcodone/APAP 5-325MG [[place] 1 tab PO Q6H PRN 08/10/24 08/10/24 History 5-325] Meloxicam [Mobic] 15 mg PO DAILY 08/10/24 08/10/24 History Ondansetron Odt [Zofran Odt] 4 mg PO Q8HR PRN 08/10/24 08/10/24 History Sennosides [Senokot] 17.2 mg PO HS PRN 08/10/24 08/10/24 History oxyBUTYnin chloride [Ditropan] 5 mg PO BID 08/10/24 08/10/24 History Allergies Allergy/AdvReac Type Severity Reaction Status Date / Time Penicillins Allergy Unknown Verified 08/10/24 16:14 Childhood Physical Exam Vitals: Vital Signs Temp Pulse Resp BP Pulse Ox 08/10/24 11:51 98.4 F 64 18 146/65 96 Intake and Output 08/10/24 08/10/24 08/10/24 06:59 14:59 22:59 Other: Weight 65.771 kg Results CBC & Chem 7: 08/10/24 12:39 08/10/24 12:39 Labs: Abnormal Lab Results - Last 24 Hours (Table) 08/10/24 08/10/24 08/10/24 Range/Units 12:39 12:39 14:44 RBC 2.35 L (4.10-5.20) 10*6/uL Hgb 7.0 L (12.0-15.0) g/dL Hct 20.7 L (37.2-46.3) % Sodium 135 L (137-145) mmol/L BUN 23 H (7-17) mg/dL Creatinine 0.50 L (0.52-1.04) mg/dL Glucose 100 H (74-99) mg/dL Total Protein 6.1 L (6.3-8.2) g/dL Urine Ketones (Negative) Stool Occult Blood Positive H (Negative) 08/10/24 Range/Units 14:52 RBC (4.10-5.20) 10*6/uL Hgb (12.0-15.0) g/dL Hct (37.2-46.3) % Sodium (137-145) mmol/L BUN (7-17) mg/dL Creatinine (0.52-1.04) mg/dL Glucose (74-99) mg/dL Total Protein (6.3-8.2) g/dL Urine Ketones Trace H (Negative) Stool Occult Blood (Negative)
[2024-08-10] MEDS: lisinopriL 20 MG TAB PO SCH (17:34)
[2024-08-10] MEDS: HYDROcodone/APAP 5-325MG 1 EACH TAB PO PRN (17:34)
[2024-08-10] MEDS: SODIUM CHLORIDE 0.9% 1,000 ML IV STA (17:35)
[2024-08-10 18:26] LABS: HCT 21.1 % (37.2-46.3); HGB 7.1 g/dL (12.0-15.0); MCH 29.7 pg (27.0-32.0); MCHC 33.6 g/dL (32.0-37.0); MCV 88.3 fL (80.0-97.0); Mean Platelet Volume 9.7 fL (9.5-12.2); Platelet Count 307 10*3/uL (140-440); RBC 2.39 10*6/uL (4.10-5.20); RDW 13.3 % (11.5-14.5)
[2024-08-10 18:41] LABS: African American GFR (CKD) >90 (>60 ml/min/1.73 sqM); Anion Gap 5 mmol/L; Blood Urea Nitrogen 21 mg/dL (7-17); Calcium 9.5 mg/dL (8.4-10.2); Carbon Dioxide 29 mmol/L (22-30); Chloride 101 mmol/L (98-107); Glucose 106 mg/dL (74-99); Non-African American GFR(CKD) 88 (>60 ml/min/1.73 sqM); Sodium 135 mmol/L (137-145)
[2024-08-10] MEDS: MORPHINE SULFATE 4 MG/ML SYRINGE IV PRN (20:03)
[2024-08-10] MEDS: oxyBUTYnin chloride 5 MG TAB PO SCH (21:53)
[2024-08-10] MEDS: PANTOPRAZOLE 40 MG/10 ML VIAL IVP SCH (21:54)
[2024-08-10] MEDS: OXcarbazepine 150 MG TAB PO SCH (21:54)
[2024-08-11 07:28] LABS: MCH 30.1 pg (27.0-32.0); MCHC 33.7 g/dL (32.0-37.0); MCV 89.3 fL (80.0-97.0); Mean Platelet Volume 9.6 fL (9.5-12.2); Platelet Count 249 10*3/uL (140-440); RBC 2.06 10*6/uL (4.10-5.20); RDW 13.3 % (11.5-14.5); WBC 5.31 10*3/uL (4.50-10.00)
[2024-08-11 07:29] LABS: HCT 18.4 % (37.2-46.3); HGB 6.2 g/dL (12.0-15.0)
[2024-08-11 07:44] LABS: African American GFR (CKD) >90 (>60 ml/min/1.73 sqM); Anion Gap 5 mmol/L; Blood Urea Nitrogen 16 mg/dL (7-17); Calcium 8.8 mg/dL (8.4-10.2); Carbon Dioxide 26 mmol/L (22-30); Chloride 105 mmol/L (98-107); Glucose 87 mg/dL (74-99); Non-African American GFR(CKD) >90 (>60 ml/min/1.73 sqM); Potassium 3.8 mmol/L (3.5-5.1); Sodium 136 mmol/L (137-145)
[2024-08-11] MEDS ORDERED: lisinopriL 20 MG TAB PO SCH (09:00)
--- NOTE | 2024-08-11 13:05 | P.GSCN ---
History of Present Illness Consult date: 08/11/24 History of present illness: CHIEF COMPLAINT: Black stools HISTORY OF PRESENT ILLNESS: This is a 74-year-old female who presented the hospital with complaints of black stools for the last week. Patient reports that she has been taking Mobic and Advil at home for her knee pain. She had recent right total knee replacement last Saturday. Patient reports that the last black stool was about 2 days ago. Hemoglobin on admission was 7.0 and hemoglobin today 6.2. She is receiving 1 unit of blood. Patient reports the last time she had black stool was about 2 days ago since then no bowel movement. She denies any abdominal pain. Denies any nausea or vomiting. She reports never having had an EGD or colonoscopy in the past. She denies being on any blood thinners. She does report taking an aspirin. PAST MEDICAL HISTORY: Seizure Disorder, Thyroid Disorder PAST SURGICAL HISTORY: oint Replacement, Tonsillectomy, Tubal Ligation, ovarian cyst and breast cyst s urgery MEDICATIONS: See below ALLERGIES: See below SOCIAL HISTORY: No illicit drug use. REVIEW OF SYSTEMS: CONSTITUTIONAL: Denies fever or chills. HEENT: Denies blurred vision, vision changes, or eye pain. Denies hemoptysis CARDIOVASCULAR: Denies chest pain or pressure. RESPIRATORY: No shortness of breath. GASTROINTESTINAL: See HPI for pertinent findings HEMATOLOGIC: Denies bleeding disorders. GENITOURINARY: Denies any blood in urine or increased urinary frequency. SKIN: Denies pruitis. Denies rash. PHYSICAL EXAM: VITAL SIGNS: Reviewed GENERAL: Well-developed in no acute distress. HEENT: No sclera icterus. Extraocular movements grossly intact. Moist buccal mucosa. Head is atraumatic, normocephalic. No nasal drainage. ABDOMEN: Soft. Nondistended. Nontender NEUROLOGIC: Alert and oriented. Cranial nerves II through XII grossly intact. LABORATORY DATA: WBC 5.31 Hgb 6.2 platelets 249 Stool for occult blood positive IMAGING: ASSESSMENT: 1. Likely upper GI bleed with melanotic stools 2. Acute blood loss anemia due to GI bleed, requiring blood transfusion PLAN: - Patient scheduled for EGD and colonoscopy on with Dr. Russo - [facility] - Okay for regular diet at lunch - Full liquid diet at dinner - Clear liquid diet starting tomorrow Physician Cable Mechanic note has been reviewed by physician. Signing provider agrees with the documented findings, assessment, and plan of care. Past Medical History Past Medical History: Hypertension, Seizure Disorder, Thyroid Disorder Additional Past Medical History / Comment(s): "pinched nerve lower back" History of Any Multi-Drug Resistant Organisms: None Reported Past Surgical History: Joint Replacement, Tonsillectomy, Tubal Ligation Additional Past Surgical History / Comment(s): ovarian cyst and breast cyst surgery Past Anesthesia/Blood Transfusion Reactions: No Reported Reaction Past Psychological History: No Psychological Hx Reported Smoking Status: Never smoker Past Alcohol Use History: None Reported Past Drug Use History: None Reported - Past Family History Mother Family Medical History: No Reported History Additional Family Medical History / Comment(s): leukemia Medications and Allergies Home Medications Medication Instructions Recorded Confirmed Type lisinopriL [Prinivil] 20 mg PO DAILY 11/03/20 08/10/24 History OXcarbazepine [Trileptal] 150 mg PO BID 10/13/21 08/10/24 History levETIRAcetam [Keppra] 1,500 mg PO BID 10/10/22 08/10/24 History HYDROcodone/APAP 5-325MG [[place] 1 tab PO Q6H PRN 08/10/24 08/10/24 History 5-325] Meloxicam [Mobic] 15 mg PO DAILY 08/10/24 08/10/24 History Ondansetron Odt [Zofran Odt] 4 mg PO Q8HR PRN 08/10/24 08/10/24 History Sennosides [Senokot] 17.2 mg PO HS PRN 08/10/24 08/10/24 History oxyBUTYnin chloride [Ditropan] 5 mg PO BID 08/10/24 08/10/24 History Allergies Allergy/AdvReac Type Severity Reaction Status Date / Time Penicillins Allergy Unknown Verified 08/10/24 16:14 Childhood Surgical - Exam Vital Signs Temp Pulse Resp BP Pulse Ox 98.4 F 64 18 146/65 96 08/10/24 11:51 08/10/24 11:51 08/10/24 11:51 08/10/24 11:51 08/10/24 11:51 Results - Labs 08/11/24 06:57 08/11/24 06:57 Abnormal Lab Results - Last 24 Hours (Table) 08/10/24 08/10/24 08/10/24 Range/Units 12:39 14:44 14:52 RBC (4.10-5.20) 10*6/uL Hgb (12.0-15.0) g/dL Hct (37.2-46.3) % Sodium 135 L (137-145) mmol/L BUN 23 H (7-17) mg/dL Creatinine 0.50 L (0.52-1.04) mg/dL Glucose 100 H (74-99) mg/dL Total Protein 6.1 L (6.3-8.2) g/dL Urine Ketones Trace H (Negative) Stool Occult Blood Positive H (Negative) Crossmatch 08/10/24 08/10/24 08/11/24 Range/Units 16:52 18:03 06:57 RBC 2.39 L 2.06 L (4.10-5.20) 10*6/uL Hgb 7.1 L 6.2 L* (12.0-15.0) g/dL Hct 21.1 L 18.4 L* (37.2-46.3) % Sodium 135 L (137-145) mmol/L BUN 21 H (7-17) mg/dL Creatinine (0.52-1.04) mg/dL Glucose 106 H (74-99) mg/dL Total Protein (6.3-8.2) g/dL Urine Ketones (Negative) Stool Occult Blood (Negative) Crossmatch 08/11/24 08/11/24 Range/Units 06:57 08:38 RBC (4.10-5.20) 10*6/uL Hgb (12.0-15.0) g/dL Hct (37.2-46.3) % Sodium 136 L (137-145) mmol/L BUN (7-17) mg/dL Creatinine (0.52-1.04) mg/dL Glucose (74-99) mg/dL Total Protein (6.3-8.2) g/dL Urine Ketones (Negative) Stool Occult Blood (Negative) Crossmatch See Detail Diabetes panel 08/10/24 08/10/24 08/11/24 Range/Units 12:39 16:52 06:57 Sodium 135 L 135 L 136 L (137-145) mmol/L Potassium 4.6 4.0 3.8 (3.5-5.1) mmol/L Chloride 103 101 105 (98-107) mmol/L Carbon Dioxide 29 29 26 (22-30) mmol/L BUN 23 H 21 H 16 (7-17) mg/dL Creatinine 0.50 L 0.61 0.56 (0.52-1.04) mg/dL Glucose 100 H 106 H 87 (74-99) mg/dL Calcium 9.4 9.5 8.8 (8.4-10.2) mg/dL AST 27 (14-36) U/L ALT 16 (4-34) U/L Alkaline Phosphatase 45 (38-126) U/L Total Protein 6.1 L (6.3-8.2) g/dL Albumin 3.5 (3.5-5.0) g/dL Calcium panel 08/10/24 08/10/24 08/11/24 Range/Units 12:39 16:52 06:57 Calcium 9.4 9.5 8.8 (8.4-10.2) mg/dL Albumin 3.5 (3.5-5.0) g/dL Pituitary panel 08/10/24 08/10/24 08/11/24 Range/Units 12:39 16:52 06:57 Sodium 135 L 135 L 136 L (137-145) mmol/L Potassium 4.6 4.0 3.8 (3.5-5.1) mmol/L Chloride 103 101 105 (98-107) mmol/L Carbon Dioxide 29 29 26 (22-30) mmol/L BUN 23 H 21 H 16 (7-17) mg/dL Creatinine 0.50 L 0.61 0.56 (0.52-1.04) mg/dL Glucose 100 H 106 H 87 (74-99) mg/dL Calcium 9.4 9.5 8.8 (8.4-10.2) mg/dL Adrenal panel 08/10/24 08/10/24 08/11/24 Range/Units 12:39 16:52 06:57 Sodium 135 L 135 L 136 L (137-145) mmol/L Potassium 4.6 4.0 3.8 (3.5-5.1) mmol/L Chloride 103 101 105 (98-107) mmol/L Carbon Dioxide 29 29 26 (22-30) mmol/L BUN 23 H 21 H 16 (7-17) mg/dL Creatinine 0.50 L 0.61 0.56 (0.52-1.04) mg/dL Glucose 100 H 106 H 87 (74-99) mg/dL Calcium 9.4 9.5 8.8 (8.4-10.2) mg/dL Total Bilirubin 0.7 (0.2-1.3) mg/dL AST 27 (14-36) U/L ALT 16 (4-34) U/L Alkaline Phosphatase 45 (38-126) U/L Total Protein 6.1 L (6.3-8.2) g/dL Albumin 3.5 (3.5-5.0) g/dL
--- NOTE | 2024-08-11 16:09 | P.PN ---
Subjective Progress Note Date: 08/11/24 Principal diagnosis: Hospital course: Patient is a 74 year old female with recent history of right knee replacement 5 days ago in [place] presented to the ED with right knee pain. Patient states having generalized knee pain that radiates up to the right thigh. Associated with that she reports bruising in the thigh area for the past couple of days. She mentions that before her surgery her Hb was around 11, approximately 2-3 weeks ago. She reports having black tarry stools since her surgery 5 days ago. She has been taking NSAIDS along with tylenol and [place] round the clock. Currently taking Advil [id number] mg a day. And also took Aspirin once for analgesia. Denies being on blood thinners. Additionally, she mentions having a UTI in June and wanted to get urinalysis to see if it cleared up. Denies any UTI symptoms. Denies hematuria, hemoptysis. She denies having a colonoscopy in the past. Denies fever, chills, shortness of breath, cough, chest pain, palpitations, abdominal pain, nausea, vomiting, hematuria, dysuria, headache, slurred speech, numbness, tingling, dizziness, lightheadedness, blurred vision, double vision. ED documentation reviewed. In the ED patient was treated with Ketorolac and pantoprazole. 08/11/24: Patient seen and examined at bedside today. Denies any acute complaints. Review of systems: Pertinent positives and negatives as discussed in HPI, a complete review of systems was performed and all other systems are negative. Vitals: Signs Reviewed, BP 152/59 Physical examination: General: nontoxic, no distress, appears at stated age Derm: warm, dry, intact Head: atraumatic, normocephalic, symmetric Eyes: EOMI, anicteric sclera Mouth: no lip lesion, mucus membranes moist Cardiovascular: S1 S2 reg, no murmur Lungs: CTA bilateral, no rhonchi, no rales, no accessory muscle use Abdominal: soft, non-tender to palpataion Extremities: No cyanosis, clubbing, or pedal edema. Neuro: Alert, Oriented, Gross neurological examination did not reveal any focal deficits. Psych: well appearing, appropriate affect Data Reviewed Today: Labs: Hemoglobin 6.2, hematocrit 18.4, MCV 89.3, sodium 136, BUN 16 Imaging: No new imaging Assessment/Plan: Patient is a 74 year old female with recent history of right knee replacement 5 days ago presented to the ED with right knee pain. She was found to have Hb of 7 and positive stool occult blood. She has admitted for upper GI bleed, S/p 1 unit PRBC for acute blood loss anemia and will undergo EGD and colonoscopy on . #. Upper GI bleed #. NSAID induced gastropathy #. Acute blood loss anemia secondary to above Patient taking 1200 mg of Advil a day and reports black tarry stools Stool occult blood is positive Hb 6.2 1unit PRBC transfused today Continue Protonix 40 mg BID Start GoLytely bowel prep tomorrow Transfuse for Hb<7 Monitor CBC General surgery is following, recommend EGD and colonoscopy on , for regular diet at lunch, Full liquid diet at dinner, Clear liquid diet starting tomorrow #. Post op pain, recent right knee replacement surgery Tylenol, [place], Morphine for pain management #. Mild hyponatremia, resolved Chronic: #. Hypertension #. Seizure disorder #. Constipation Resume lisinopril 20 mg p.o. daily, levetiracetam 1500 mg p.o. twice daily, oxcarbazepine 150 mg p.o. twice daily, oxybutynin 5 mg p.o. twice daily, Senokot 17.2 mg PO HS PRN F: None E: Replete as required N: Regular diet at lunch, Full liquid diet at dinner, Clear liquid diet starting tomorrow DVT prophylaxis: Not indicated due to GI bleed GI prophylaxis: Protonix 40 mg BID CODE STATUS: Full code Anticipated discharge place: Pending clinical course Anticipated discharge time: Pending clinical course Dictation was produced using [employer] dictation software. please excuse any grammatical, word or spelling errors. Paola Casiano MD PGY-1 IM I saw and evaluated the patient during the perez and critical portions of this encounter, and discussed the case in detail with the resident author of this note, I agree with the Assessment and Plan, and my changes, if any, are highlighted in blue. Objective - Vital Signs Vital signs: Vital Signs Temp 97.9 F 08/11/24 12:40 Pulse 93 08/11/24 12:40 Resp 16 08/11/24 12:40 BP 152/59 08/11/24 12:40 Pulse Ox 97 08/11/24 12:40 FiO2 Intake & Output 08/10/24 08/11/24 08/11/24 18:59 06:59 18:59 Intake Total 0 Balance 0 Weight 65.771 kg 73.3 kg Intake: Blood Product 0 Unit 0 Other: Voiding Method Toilet Toilet # Voids 1 - Labs CBC & Chem 7: 08/11/24 06:57 08/11/24 06:57 Labs: Abnormal Lab Results - Last 24 Hours (Table) 08/10/24 08/10/24 08/11/24 Range/Units 16:52 18:03 06:57 RBC 2.39 L 2.06 L (4.10-5.20) 10*6/uL Hgb 7.1 L 6.2 L* (12.0-15.0) g/dL Hct 21.1 L 18.4 L* (37.2-46.3) % Sodium 135 L (137-145) mmol/L BUN 21 H (7-17) mg/dL Glucose 106 H (74-99) mg/dL Crossmatch 08/11/24 08/11/24 Range/Units 06:57 08:38 RBC (4.10-5.20) 10*6/uL Hgb (12.0-15.0) g/dL Hct (37.2-46.3) % Sodium 136 L (137-145) mmol/L BUN (7-17) mg/dL Glucose (74-99) mg/dL Crossmatch See Detail
[2024-08-12 07:23] LABS: HCT 24.2 % (37.2-46.3); MCH 29.7 pg (27.0-32.0); MCHC 33.5 g/dL (32.0-37.0); MCV 88.6 fL (80.0-97.0); Mean Platelet Volume 9.4 fL (9.5-12.2); Platelet Count 323 10*3/uL (140-440); RBC 2.73 10*6/uL (4.10-5.20); RDW 14.3 % (11.5-14.5); WBC 7.02 10*3/uL (4.50-10.00)
[2024-08-12 07:38] LABS: HGB 8.1 g/dL (12.0-15.0)
[2024-08-12] MEDS: PEG 3350 (236 GM/BTL) + LYTES 4,000 ML BOTTLE PO ONE (09:48)
--- NOTE | 2024-08-12 11:34 | P.PN ---
Subjective Progress Note Date: 08/12/24 Principal diagnosis: Hospital course: Patient is a 74 year old female with recent history of right knee replacement 5 days ago in [place] presented to the ED with right knee pain. Patient states having generalized knee pain that radiates up to the right thigh. Associated with that she reports bruising in the thigh area for the past couple of days. She mentions that before her surgery her Hb was around 11, approximately 2-3 weeks ago. She reports having black tarry stools since her surgery 5 days ago. She has been taking NSAIDS along with tylenol and [place] round the clock. Currently taking Advil [id number] mg a day. And also took Aspirin once for analgesia. Denies being on blood thinners. Additionally, she mentions having a UTI in June and wanted to get urinalysis to see if it cleared up. Denies any UTI symptoms. Denies hematuria, hemoptysis. She denies having a colonoscopy in the past. Denies fever, chills, shortness of breath, cough, chest pain, palpitations, abdominal pain, nausea, vomiting, hematuria, dysuria, headache, slurred speech, numbness, tingling, dizziness, lightheadedness, blurred vision, double vision. ED documentation reviewed. In the ED patient was treated with Ketorolac and pantoprazole. 08/11/24: Patient seen and examined at bedside today. Denies any acute complaints. 08/12/24: Patient evaluated at bedside. No acute complaints. Patient received 1 unit PRBC yesterday. Review of systems: Pertinent positives and negatives as discussed in HPI, a complete review of systems was performed and all other systems are negative. Vitals: Signs Reviewed, BP 164/72 Physical examination: General: nontoxic, no distress, appears at stated age Derm: warm, dry, intact Head: atraumatic, normocephalic, symmetric Eyes: EOMI, anicteric sclera Mouth: no lip lesion, mucus membranes moist Cardiovascular: S1 S2 reg, no murmur Lungs: CTA bilateral, no rhonchi, no rales, no accessory muscle use Abdominal: soft, non-tender to palpataion Extremities: No cyanosis, clubbing, or pedal edema. Neuro: Alert, Oriented, Gross neurological examination did not reveal any focal deficits. Psych: well appearing, appropriate affect Data Reviewed Today: Labs: Hemoglobin 8.1, hematocrit 24.2 Imaging: No new imaging Assessment/Plan: Patient is a 74 year old female with recent history of right knee replacement 5 days ago presented to the ED with right knee pain. She was found to have Hb of 7 and positive stool occult blood. She has admitted for upper GI bleed, S/p 1 unit PRBC for acute blood loss anemia and will undergo EGD and colonoscopy on . #. Upper GI bleed #. NSAID induced gastropathy #. Acute blood loss anemia secondary to above Patient taking 1200 mg of Advil a day and reports black tarry stools Stool occult blood is positive [place] bleeding Score of 9 1unit PRBC transfused 08/11/24 Hb 8.1 today Continue Protonix 40 mg BID Start GoLytely bowel prep Transfuse for Hb<7 Monitor CBC General surgery is following, recommend EGD and colonoscopy on #. Post op pain, recent right knee replacement surgery Tylenol, [place], Morphine for pain management #. Mild hyponatremia, resolved Chronic: #. Hypertension #. Seizure disorder #. Constipation Resume lisinopril 20 mg p.o. daily, levetiracetam 1500 mg p.o. twice daily, oxcarbazepine 150 mg p.o. twice daily, oxybutynin 5 mg p.o. twice daily, Senokot 17.2 mg PO HS PRN F: None E: Replete as required N: Clear liquid diet A: Ambulatory DVT prophylaxis: Not indicated due to GI bleed GI prophylaxis: Protonix 40 mg BID CODE STATUS: Full code Anticipated discharge place: Pending clinical course Anticipated discharge time: Pending clinical course Dictation was produced using [employer] dictation software. please excuse any grammatical, word or spelling errors. Paola Casiano MD PGY-1 IM I have seen and evaluated the patient today. Discussed with the resident and agree with the residents finding and plan as documented in the resident's note. Changes highlighted in blue font. Objective - Vital Signs Vital signs: Vital Signs Temp 98.0 F 08/11/24 20:00 Pulse 91 08/12/24 02:00 Resp 16 08/12/24 02:00 BP 164/72 08/12/24 02:00 Pulse Ox 96 08/12/24 02:00 FiO2 Intake & Output 08/11/24 08/12/24 08/12/24 18:59 06:59 18:59 Intake Total 310 Balance 310 Weight 75.7 kg Intake: Blood Product 310 Rc As-1 Unit 310 [id number] Other: Voiding Method Toilet Toilet # Voids 2 - Labs CBC & Chem 7: 08/12/24 06:22 08/11/24 06:57 Labs: Abnormal Lab Results - Last 24 Hours (Table) 08/11/24 08/11/24 08/11/24 Range/Units 06:57 06:57 08:38 RBC 2.06 L (4.10-5.20) 10*6/uL Hgb 6.2 L* (12.0-15.0) g/dL Hct 18.4 L* (37.2-46.3) % Sodium 136 L (137-145) mmol/L Crossmatch See Detail
--- NOTE | 2024-08-12 13:20 | P.PN ---
Subjective Progress Note Date: 08/12/24 SURGICAL PROGRESS NOTE CHIEF COMPLAINT: GI bleed HISTORY OF PRESENT ILLNESS: Patient has had no further melanotic stools. Hemoglobin did go up from 6.2-8.1. Vital stable. PHYSICAL EXAM: VITAL SIGNS: Reviewed. GENERAL: Well-developed in no acute distress. NEUROLOGIC: Alert and oriented. Cranial nerves II through XII grossly intact. ASSESSMENT: 1. Likely upper GI bleed with melanotic stools 2. Acute blood loss anemia due to GI bleed, requiring blood transfusion 3. Daily NSAID use PLAN: -Patient scheduled for EGD and colonoscopy tomorrow with Dr. Russo - Start GoLytely bowel prep today - Clear liquid diet today - N.p.o. after midnight - Continue IV Protonix - Repeat CBC, BMP in a.m. - No NSAIDs Physician Adjunct Professor Of [employer] note has been reviewed by physician. Signing provider agrees with the documented findings, assessment, and plan of care. Objective - Vital Signs Vital signs: Vital Signs Temp 97.8 F 08/12/24 09:40 Pulse 100 08/12/24 09:40 Resp 16 08/12/24 09:40 BP 177/76 08/12/24 09:40 Pulse Ox 97 08/12/24 09:40 FiO2 Intake & Output 08/11/24 08/12/24 08/12/24 18:59 06:59 18:59 Intake Total 310 440 Balance 310 440 Weight 75.7 kg Intake: Oral 440 Blood Product 310 Rc As-1 Unit 310 [id number] Other: Voiding Method Toilet Toilet # Voids 2 - Labs CBC & Chem 7: 08/12/24 06:22 08/11/24 06:57 Labs: Abnormal Lab Results - Last 24 Hours (Table) 08/11/24 08/12/24 Range/Units 08:38 06:22 RBC 2.73 L (4.10-5.20) 10*6/uL Hgb 8.1 L D (12.0-15.0) g/dL Hct 24.2 L (37.2-46.3) % MPV 9.4 L (9.5-12.2) fL Crossmatch See Detail
--- NOTE | 2024-08-12 20:35 | P.CNOR ---
History of Present Illness - [facility] Consult date: 08/12/24 Consult reason: other (Postoperative anemia.GI bleed.) History of present illness: This is a 74-year-old female who is status post total right knee arthroplasty at our outpatient surgery center on 08/05/2024. She began having symptoms of dizziness, lightheadedness and not feeling well. [facility] She was found to have a low hemoglobin and a positive occult blood stool sample. She was admitted for further evaluation. Her hemoglobin dropped to 6.2. She was given a transfusion. Hemoglobin today is 8.1. She states that she is otherwise feeling well. She is having minimal knee pain. She denies calf pain or shortness of breath. Past Medical History Past Medical History: Hypertension, Seizure Disorder, Thyroid Disorder Additional Past Medical History / Comment(s): "pinched nerve lower back" History of Any Multi-Drug Resistant Organisms: None Reported Past Surgical History: Joint Replacement, Tonsillectomy, Tubal Ligation Additional Past Surgical History / Comment(s): ovarian cyst and breast cyst surgery Past Anesthesia/Blood Transfusion Reactions: No Reported Reaction Past Psychological History: No Psychological Hx Reported Smoking Status: Never smoker Past Alcohol Use History: None Reported Past Drug Use History: None Reported - Past Family History Mother Family Medical History: No Reported History Additional Family Medical History / Comment(s): leukemia Medications and Allergies Home Medications Medication Instructions Recorded Confirmed Type lisinopriL [Prinivil] 20 mg PO DAILY 11/03/20 08/10/24 History OXcarbazepine [Trileptal] 150 mg PO BID 10/13/21 08/10/24 History levETIRAcetam [Keppra] 1,500 mg PO BID 10/10/22 08/10/24 History HYDROcodone/APAP 5-325MG [[place] 1 tab PO Q6H PRN 08/10/24 08/10/24 History 5-325] Meloxicam [Mobic] 15 mg PO DAILY 08/10/24 08/10/24 History Ondansetron Odt [Zofran Odt] 4 mg PO Q8HR PRN 08/10/24 08/10/24 History Sennosides [Senokot] 17.2 mg PO HS PRN 08/10/24 08/10/24 History oxyBUTYnin chloride [Ditropan] 5 mg PO BID 08/10/24 08/10/24 History Allergies Allergy/AdvReac Type Severity Reaction Status Date / Time Penicillins Allergy Unknown Verified 08/10/24 16:14 Childhood Physical Examination This is a pleasant 74-year-old female in no acute distress. She is alert and oriented x 3. Her daughter is present in the room at the time of the examination. The patient is sitting up in a chair. Exam of her right lower extremity reveals ecchymosis about the upper thigh. Her Optifoam dressing is removed today. Incision looks good with no erythema. Skin glue is intact. Incision is healing well. She has full foot and ankle motion without difficulty or pain. Neurovascular status to the lower extremity is intact. Results - Labs Labs: Abnormal Lab Results - Last 24 Hours (Table) 08/12/24 Range/Units 06:22 RBC 2.73 L (4.10-5.20) 10*6/uL Hgb 8.1 L D (12.0-15.0) g/dL Hct 24.2 L (37.2-46.3) % MPV 9.4 L (9.5-12.2) fL H & H 08/10/24 08/10/24 08/11/24 Range/Units 12:39 18:03 06:57 Hgb 7.0 L 7.1 L 6.2 L* (12.0-15.0) g/dL Hct 20.7 L 21.1 L 18.4 L* (37.2-46.3) % 08/12/24 Range/Units 06:22 Hgb 8.1 L D (12.0-15.0) g/dL Hct 24.2 L (37.2-46.3) % Result Diagrams: 08/12/24 06:22 08/11/24 06:57 Assessment and Plan (1) Upper GI bleed Current Visit: Yes Status: Acute Code(s): K92.2 - GASTROINTESTINAL HEMO RRHAGE, UNSPECIFIED SNOMED Code(s): 24200676 (2) Dehydration Current Visit: No Status: Acute Code(s): E86.0 - DEHYDRATION SNOMED Code(s): 80165752 (3) Status post total right knee replacement Current Visit: Yes Status: Acute Code(s): Z96.651 - PRESENCE OF RIGHT ARTIFICIAL KNEE JOINT SNOMED Code(s): 7893042299290 Plan: The clinical findings are discussed with the patient and her daughter. She is scheduled for an EGD and colonoscopy tomorrow. She is doing well with regard to her knee. I have encouraged gentle range of motion exercises of the knee and straight leg raises while in bed. She will follow-up as previously scheduled in 1 week.
[2024-08-13 06:24] LABS: HCT 20.8 % (37.2-46.3); HGB 7.1 g/dL (12.0-15.0); MCH 30.1 pg (27.0-32.0); MCHC 34.1 g/dL (32.0-37.0); MCV 88.1 fL (80.0-97.0); Mean Platelet Volume 9.5 fL (9.5-12.2); Platelet Count 291 10*3/uL (140-440); RBC 2.36 10*6/uL (4.10-5.20); RDW 14.2 % (11.5-14.5)
[2024-08-13 07:17] LABS: African American GFR (CKD) >90 (>60 ml/min/1.73 sqM); Anion Gap 5 mmol/L; Blood Urea Nitrogen 8 mg/dL (7-17); Calcium 8.8 mg/dL (8.4-10.2); Carbon Dioxide 28 mmol/L (22-30); Chloride 99 mmol/L (98-107); Glucose 85 mg/dL (74-99); Non-African American GFR(CKD) >90 (>60 ml/min/1.73 sqM); Potassium 3.4 mmol/L (3.5-5.1); Sodium 132 mmol/L (137-145)
[2024-08-13] MEDS ORDERED: PROPOFOL 10 MG/ML 20 ML VIAL IV ONE (09:51)
[2024-08-13] MEDS: IV FLUID CONTINUATION 1,000 ML IV ONE (09:54)
[2024-08-13 10:19] VITALS: TEMP 98.2
--- NOTE | 2024-08-13 10:24 | P.OP ---
Date of Procedure: 08/13/24 Preoperative Diagnosis: GI bleed Postoperative Diagnosis: Antral ulcer Gastritis Diverticulosis Procedure(s) Performed: Colonoscopy Anesthesia: MAC Surgeon: Akash Russo Pathology: other (Antrum, duodenum) Condition: stable Disposition: PACU Description of Procedure: The patient was placed on the endoscopy table in the lateral position. She received IV sedation. The Gastroflux oropharynx passed in the esophagus through the pylorus and into the duodenum. The 1st and 2nd portion duodenum appeared noninflamed. A biopsy performed. The scope was Ruback in the antrum and the prepyloric ulcer was visualized. There was no active bleeding. A biopsy of the ulcer edge was performed. Scope was then retroflexed and remainder of the stomach appeared normal. The GE junction was at 40 cm. The distal esophagus appeared normal. The proximal esophagus appeared normal. Scope withdrawn the patient. There was no active upper GI bleed seen. Next digital rectal exams performed. Large but liquid stool. Flexible colonoscope was then placed patient anus. The prep was suboptimal. The colonoscope was advanced to the le transverse colon. Due to the poor prep the scope was then withdrawn. The visualized descending and sigmoid colon extensive diverticular changes. The view of the mucosa was limited due to the poor prep. The scope was Ruback the rectum this appeared normal. Scope withdrawn the patient. Presumed the patient had bleeding from her prepyloric ulcer.
[2024-08-13] MEDS: POTASSIUM CHLORIDE ER 20 MEQ TAB.ER PO STA (12:44)
--- NOTE | 2024-08-13 13:07 | P.PN ---
Subjective Progress Note Date: 08/13/24 Principal diagnosis: Hospital course: Patient is a 74 year old female with recent history of right knee replacement 5 days ago in [place] presented to the ED with right knee pain. Patient states having generalized knee pain that radiates up to the right thigh. Associated with that she reports bruising in the thigh area for the past couple of days. She mentions that before her surgery her Hb was around 11, approximately 2-3 weeks ago. She reports having black tarry stools since her surgery 5 days ago. She has been taking NSAIDS along with tylenol and Coxsackie round the clock. Currently taking Advil [id number] mg a day. And also took Aspirin once for analgesia. Denies being on blood thinners. Additionally, she mentions having a UTI in June and wanted to get urinalysis to see if it cleared up. Denies any UTI symptoms. Denies hematuria, hemoptysis. She denies having a colonoscopy in the past. Denies fever, chills, shortness of breath, cough, chest pain, palpitations, abdominal pain, nausea, vomiting, hematuria, dysuria, headache, slurred speech, numbness, tingling, dizziness, lightheadedness, blurred vision, double vision. ED documentation reviewed. In the ED patient was treated with Ketorolac and pantoprazole. 08/11/24: Patient seen and examined at bedside today. Denies any acute complaints. 08/12/24: Patient evaluated at bedside. No acute complaints. Patient received 1 unit PRBC yesterday. 08/13/24: Patient seen and examined at bedside today. Patient had bowel prep with GoLytely yesterday was maintained NPO after midnight. Patient underwent EGD and colonoscopy today. Review of systems: Pertinent positives and negatives as discussed in HPI, a complete review of systems was performed and all other systems are negative. Vitals: Signs Reviewed, BP 149/74 Physical examination: General: nontoxic, no distress, appears at stated age Derm: warm, dry, intact Head: atraumatic, normocephalic, symmetric Eyes: EOMI, anicteric sclera Mouth: no lip lesion, mucus membranes moist Cardiovascular: S1 S2 reg, no murmur Lungs: CTA bilateral, no rhonchi, no rales, no accessory muscle use Abdominal: soft, non-tender to palpataion Extremities: No cyanosis, clubbing, or pedal edema. Neuro: Alert, Oriented, Gross neurological examination did not reveal any focal deficits. Psych: well appearing, appropriate affect Data Reviewed Today: Labs: Hemoglobin 7.1, hematocrit 20.8, Na 132, K 3.4 Imaging: No new imaging Assessment/Plan: Patient is a 74 year old female with recent history of right knee replacement 5 days ago presented to the ED with right knee pain. She was found to have Hb of 7 and positive stool occult blood. She has admitted for upper GI bleed, S/p 1 unit PRBC for acute blood loss anemia and will underwent EGD and colonoscopy on 08/13/24 #. Antral ulcer #. Upper GI bleed #. NSAID induced gastropathy #. Acute blood loss anemia secondary to above S/p EGD and colonoscopy Patient taking 1200 mg of Advil a day and reports black tarry stools Stool occult blood is positive Tasia [place] bleeding Score of 9 1unit PRBC transfused 08/11/24 Hb 8.1 today Transfuse for Hb<7 Continue Protonix 40 mg BID GoLytely bowel prep EGD showed antral ulcer, gastritis. Colonoscopy showed diverticulosis, extensive diverticular changes in descending and sigmoid colon, view of mucose limited due to poor bowel prep Obtain iron studies, retic count, LDH, Haptoglobin Monitor CBC General surgery is following #. Post op pain, recent right knee replacement surgery Tylenol, Coxsackie, Morphine for pain management Orthopedic Surgery consulted, encouraged gentle range of motion exercises of the knee and straight leg raises while in bed #. Mild hyponatremia Na 132 Monitor BMP #. Hypokalemia K 3.4 Potassium chloride 40 meq ordered Monitor BMP Chronic: #. Hypertension #. Seizure disorder #. Constipation Resume lisinopril 20 mg p.o. daily, levetiracetam 1500 mg p.o. twice daily, oxcarbazepine 150 mg p.o. twice daily, oxybutynin 5 mg p.o. twice daily, Senokot 17.2 mg PO HS PRN F: None E: Replete K N: Regular diet A: Ambulatory DVT prophylaxis: Not indicated due to GI bleed and anemia GI prophylaxis: Protonix 40 mg BID CODE STATUS: Full code Anticipated discharge place: Pending clinical course Anticipated discharge time: Pending clinical course Dictation was produced using [employer] dictation software. please excuse any grammatical, word or spelling errors. Paola Casiano MD PGY-1 IM I have seen and evaluated the patient today. Discussed with the resident and agree with the residents finding and plan as documented in the resident's note. Changes highlighted in blue font. Objective - Vital Signs Vital signs: Vital Signs Temp 97.4 F L 08/12/24 23:35 Pulse 85 08/13/24 04:20 Resp 19 08/13/24 04:20 BP 149/74 08/13/24 04:20 Pulse Ox 96 08/13/24 04:20 FiO2 Intake & Output 08/12/24 08/13/24 08/13/24 18:59 06:59 18:59 Intake Total 880 20 Balance 880 20 Weight 76.7 kg Intake: IV 20 Invasive Line 1 20 Oral 880 Other: Voiding Method Toilet # Voids 3 # Bowel Movements 3 - Labs CBC & Chem 7: 08/13/24 05:58 08/13/24 05:58 Labs: Abnormal Lab Results - Last 24 Hours (Table) 08/13/24 08/13/24 Range/Units 05:58 05:58 RBC 2.36 L (4.10-5.20) 10*6/uL Hgb 7.1 L (12.0-15.0) g/dL Hct 20.8 L (37.2-46.3) % Sodium 132 L (137-145) mmol/L Potassium 3.4 L (3.5-5.1) mmol/L Creatinine 0.42 L (0.52-1.04) mg/dL
[2024-08-13 19:32] LABS: Reticulocyte % 3.46 % (0.10-1.80)
[2024-08-13] MEDS ORDERED: Potassium Replacement Protocol 1 EACH MISC MISCELLANE PRN (20:22)
[2024-08-13] MEDS: POTASSIUM CHLORIDE ER 20 MEQ TAB.ER PO SCH (20:55)
[2024-08-14] MEDS ORDERED: LIDOCAINE 1% (10MG/ML) FOR IV START INTRADERMA PRN (07:26)
[2024-08-14 07:55] LABS: HCT 22.9 % (37.2-46.3); HGB 7.4 g/dL (12.0-15.0); MCH 29.5 pg (27.0-32.0); MCHC 32.3 g/dL (32.0-37.0); MCV 91.2 fL (80.0-97.0); Mean Platelet Volume 9.2 fL (9.5-12.2); Platelet Count 338 10*3/uL (140-440); RBC 2.51 10*6/uL (4.10-5.20); RDW 14.9 % (11.5-14.5); WBC 5.13 10*3/uL (4.50-10.00)
[2024-08-14 08:08] LABS: African American GFR (CKD) >90 (>60 ml/min/1.73 sqM); Anion Gap 5 mmol/L; Blood Urea Nitrogen 9 mg/dL (7-17); Calcium 9.3 mg/dL (8.4-10.2); Carbon Dioxide 29 mmol/L (22-30); Chloride 101 mmol/L (98-107); Glucose 98 mg/dL (74-99); LDH 204 U/L (120-246); Non-African American GFR(CKD) >90 (>60 ml/min/1.73 sqM); Potassium 4.6 mmol/L (3.5-5.1); Sodium 135 mmol/L (137-145)
[2024-08-14] MEDS: LACTATED RINGERS 1,000 ML IV SCH (09:26)
[2024-08-14 09:30] VITALS: BP 131/69; PULSE 75; RESP 16
[2024-08-14 10:32] LABS: % Iron Saturation 11.33 (12.00-45.00)
--- NOTE | 2024-08-14 13:13 | P.PN ---
Subjective Progress Note Date: 08/14/24 SURGICAL PROGRESS NOTE CHIEF COMPLAINT: GI bleed HISTORY OF PRESENT ILLNESS: Patient is status post EGD and colonoscopy with results showing antral ulcer gastritis and diverticulosis. Presumed bleeding f rom her prepyloric ulcer. Patient does report having dark greenish stools. Hemoglobin 7.4. Denies any abdominal pain. Tolerating diet. And is being discharged today. PHYSICAL EXAM: VITAL SIGNS: Reviewed. GENERAL: Well-developed in no acute distress. NEUROLOGIC: Alert and oriented. Cranial nerves II through XII grossly intact. ASSESSMENT: 1. upper GI bleed with melanotic stools likely secondary to presumed bleeding from her prepyloric ulcer 2. Acute blood loss anemia due to GI bleed, requiring blood transfusion 3. Daily NSAID use PLAN: -Patient can be discharged from surgical standpoint -No NSAIDs -Continue PPI Physician Irrigation Equipment Mechanic note has been reviewed by physician. Signing provider agrees with the documented findings, assessment, and plan of care. Objective - Vital Signs Vital signs: Vital Signs Temp 98.2 F 08/13/24 20:10 Pulse 75 08/14/24 09:29 Resp 16 08/14/24 09:29 BP 131/69 08/14/24 09:29 Pulse Ox 99 08/14/24 09:29 FiO2 Intake & Output 08/13/24 08/14/24 08/14/24 18:59 06:59 18:59 Intake Total 560 20 128 Balance 560 20 128 Weight 76.1 kg Intake: IV 320 20 10 Invasive Line 1 20 20 10 Oral 240 118 Other: Voiding Method Toilet Toilet # Voids 2 - Labs CBC & Chem 7: 08/14/24 07:03 08/14/24 07:03 Labs: Abnormal Lab Results - Last 24 Hours (Table) 08/13/24 08/14/24 08/14/24 Range/Units 13:05 07:03 07:03 RBC (4.10-5.20) 10*6/uL Hgb (12.0-15.0) g/dL Hct (37.2-46.3) % MPV (9.5-12.2) fL Retic Count 3.46 H (0.10-1.80) % Sodium (137-145) mmol/L Iron 23 L (50-170) UG/DL TIBC 203 L (228-460) UG/DL % Saturation 11.33 L (12.00-45.00) Transferrin 139.0 L 145.0 L (204.0-354.0) mg/dL 08/14/24 08/14/24 Range/Units 07:03 07:03 RBC 2.51 L (4.10-5.20) 10*6/uL Hgb 7.4 L (12.0-15.0) g/dL Hct 22.9 L (37.2-46.3) % MPV 9.2 L (9.5-12.2) fL Retic Count (0.10-1.80) % Sodium 135 L (137-145) mmol/L Iron (50-170) UG/DL TIBC (228-460) UG/DL % Saturation (12.00-45.00) Transferrin (204.0-354.0) mg/dL
--- NOTE | 2024-08-14 14:52 | P.DS ---
Providers Date of admission: 08/10/24 17:17 Expected date of discharge: 08/14/24 Attending physician: Criselda Ko MD Consults: 08/10/24 15:33 Consult Physician Urgent Consulting Provider: Akash Russo Consult Reason/Comments: Upper GI bleed Do you want consulting provider notified?: Yes 08/12/24 12:48 Consult Physician Routine Consulting Provider: Emeterio Garcia Consult Reason/Comments: pt known to you Do you want consulting provider notified?: Already Contacted Primary care physician: Stated None Hospital Course: Discharge diagnosis: Antral ulcer NSAID induced gastropathy Acute blood loss anemia secondary to above S/p EGD and colonoscopy Post op pain, recent right knee replacement surgery Mild hyponatremia Hypokalemia Hypertension Seizure disorder Constipation Hospital Course: Patient is a 74 year old female with recent history of right knee replacement 5 days ago in [place] presented to the ED with right knee pain. Patient states having generalized knee pain that radiates up to the right thigh. Associated with that she reports bruising in the thigh area for the past couple of days. She mentions that before her surgery her Hb was around 11, approximately 2-3 weeks ago. She reports having black tarry stools since her surgery 5 days ago. She has been taking NSAIDS along with tylenol and [place] round the clock. Currently taking Advil [id number] mg a day. And also took Aspirin once for analgesia. Initial workup in the ED showed vitals T 98.4 F, [place] 64 bpm, RR 18, BP 146/65, SpO2 96% on room air. Venous Doppler study shows no ultrasound evidence of DVT right lower extremity. Labs hemoglobin 7, MCV 88.1, Stool occult blood is positive At this point she was started on Protonix 40 mg twice daily. The next day her hemoglobin was 6.21 unit of PRBC was transfused. General surgery was consulted and she underwent EGD and colonoscopy. EGD showed antral ulcer, gastritis, no active bleed was seen. Colonoscopy showed diverticulosis, extensive diverticular changes in descending and sigmoid colon, view of mucosa limited due to poor bowel prep. Her potassium was low and she was given pota ssium chloride 40 meq. Orthopedic surgery was also consulted, recommended to Begin PT outpatient as previously scheduled. Follow up with Ortho next week as previously scheduled. She has been optimized for discharge home. Patient seen at bedside today and is feeling good and excited about discharge. Patient will be discharged today and is given a script for Protonix 40 mg p.o. daily. Patient is given a handout for GI bleeding and GERD and is advised not to take NSAIDs. Patient is advised to follow-up with PCP in 1-2 days, general surgeon on 08/20/24, and Orthopedic surgery next week as previously scheduled . Vital signs are reviewed and stable General: nontoxic, no distress, appears at stated age Derm: warm, dry, intact Head: atraumatic, normocephalic, symmetric Eyes: EOMI, anicteric sclera Mouth: no lip lesion, mucus membranes moist Cardiovascular: S1 S2 reg, no murmur Lungs: CTA bilateral, no rhonchi, no rales, no accessory muscle use Abdominal: soft, non-tender to palpataion Extremities: No cyanosis, clubbing, or pedal edema. Neuro: Alert, Oriented, Gross neurological examination did not reveal any focal deficits. Psych: well appearing, appropriate affect A total of 30 minutes of time were spent preparing this complex discharge summary. Patient was discharged on 08/14/24 at 0913. Dictation was produced using [employer] dictation software. please excuse any grammatical, word or spelling error Paola Casiano MD PGY-1 IM I have seen and evaluated the patient today. Discussed with the resident and agree with the residents finding and plan as documented in the resident's note. Changes highlighted in blue font. Patient Condition at Discharge: Stable Plan - Discharge Summary Discharge Rx Participant: Yes New Discharge Prescriptions: New Pantoprazole [Protonix] 40 mg PO DAILY #90 tab Continue levETIRAcetam [Keppra] 1,500 mg PO BID lisinopriL [Prinivil] 20 mg PO DAILY OXcarbazepine [Trileptal] 150 mg PO BID oxyBUTYnin chloride [Ditropan] 5 mg PO BID Sennosides [Senokot] 17.2 mg PO HS PRN PRN Reason: Constipation Ondansetron Odt [Zofran ODT] 4 mg PO Q8HR PRN PRN Reason: Nausea HYDROcodone/APAP 5-325MG [[place] 5-325] 1 tab PO Q6H PRN PRN Reason: Pain Discontinued Meloxicam [Mobic] 15 mg PO DAILY Discharge Medication List lisinopriL [Prinivil] 20 mg PO DAILY 11/03/20 [History] OXcarbazepine [Trileptal] 150 mg PO BID 10/13/21 [History] levETIRAcetam [Keppra] 1,500 mg PO BID 10/10/22 [History] HYDROcodone/APAP 5-325MG [[place] 5-325] 1 tab PO Q6H PRN 08/10/24 [History] Ondansetron Odt [Zofran ODT] 4 mg PO Q8HR PRN 08/10/24 [History] Sennosides [Senokot] 17.2 mg PO HS PRN 08/10/24 [History] oxyBUTYnin chloride [Ditropan] 5 mg PO BID 08/10/24 [History] Pantoprazole [Protonix] 40 mg PO DAILY #90 tab 08/14/24 [Rx] Follow up Appointment(s)/Referral(s): Edwina Bean PAC [PHYSICIAN TELECOMMUNICATIONS TECHNICIAN] - 08/20/24 3:00 pm (SATURDAY) [facility] [NON-STAFF] - 1 Week None,Stated [Primary Care Provider] - 1-2 days Akash Russo MD [STAFF PHYSICIAN] - 08/20/24 1:30 pm (SATURDAY) Patient Instructions/Handouts: Gastrointestinal Bleeding (GEN), GERD (Gastroesophageal Reflux Disease) (DC) Activity/Diet/Wound Care/Special Instructions: Begin PT outpatient as previously scheduled. Follow up with Ortho next week as previously scheduled. Discharge/Stand Alone Forms: PH Area PCPs Discharge Disposition: HOME SELF-CARE
--- NOTE | 2024-08-17 20:59 | CDI ---
Documentation Clarification Form Date: 08/17/2024 08:10:32 PM From: Gabby Rueda Phone: Admit Date: 08/10/2024 05:17:00 PM Patient Name: Lindsey Escoto Visit Number: [id number] Discharge Date: 08/14/2024 10:39:00 AM ATTENTION: The Clinical Documentation Specialists (CDI) and [facility] Coding Staff appreciate your assistance in clarifying documentation. Please respond to the clarification below the line at the bottom and electronically sign. The CDI & [facility] Coding staff will review the response and follow-up if needed. Please note: Queries are made part of the Legal Health Record. If you have any questions, please contact the author of this message via ITS. 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 Coding guidelines do not allow coding professionals to code based on pathology results; therefore, clarification is requested. History/risk factors: 74yo F, Antral ulcer, NSAID inducedgastropathy, ABLA, Post op pain d/t recent TKR, hyponatremia, hypokalemia, HTN, seizure disorder, constipation Clinical Indicators: duodenum" a 0.3 cm pink-knowles soft tissue fragment.[id number]. A 0.4 cm pink-knowles soft tissue fragment Treatment: Duodenum, Biopsy; Stomach, Biopsy - Antrum Please clarify if you agree with the pathology report diagnosis of chronic gastritis: [ x] Yes [ ] No [ ] Other (please specify) [ ] Unable to determine (Template Last Revised: May 2020) MTDD
== END 2024-08-14 10:39 | disposition home or self-care (01) | DRG 811 ==
LOC: EC 11:48 → 4SSUR 17:17 → 3SCARD 20:56
PROVIDERS: ADMIT Student in an Organized Health Care Education/Training Program; ATTEND Student in an Organized Health Care Education/Training Program
PROC: 30233N1 Transfusion of Nonautologous Red Blood Cells into Peripheral Vein, Percutaneous Approach (ICD-10-PCS; 2024-08-11)
PROC: 0DB78ZX Excision of Stomach, Pylorus, Via Natural or Artificial Opening Endoscopic, Diagnostic (ICD-10-PCS; 2024-08-13)
PROC: 0DJD8ZZ Inspection of Lower Intestinal Tract, Via Natural or Artificial Opening Endoscopic (ICD-10-PCS; principal; 2024-08-13 10:40)
PROC: 0DB98ZX Excision of Duodenum, Via Natural or Artificial Opening Endoscopic, Diagnostic (ICD-10-PCS; 2024-08-13 10:40)
DX: D62 Acute posthemorrhagic anemia (principal); K25.4 Chronic or unspecified gastric ulcer with hemorrhage; G40.909 Epilepsy, unspecified, not intractable, without status epilepticus; I10 Essential (primary) hypertension; E87.1 Hypo-osmolality and hyponatremia; K31.89 Other diseases of stomach and duodenum; G89.18 Other acute postprocedural pain; K59.00 Constipation, unspecified; E87.6 Hypokalemia; K57.90 Diverticulosis of intestine, part unspecified, without perforation or abscess without bleeding; T39.395A Adverse effect of other nonsteroidal anti-inflammatory drugs [NSAID], initial encounter; Z79.1 Long term (current) use of non-steroidal anti-inflammatories (NSAID); Z79.899 Other long term (current) drug therapy; Z96.651 Presence of right artificial knee joint
CPT/HCPCS: 36415; 36430; 43239; 45378; 80048; 80053; 81003; 82272; 82728; 83010; 83540; 83550; 83615; 84466; 85025; 85027; 85045; 86850; 86900; 86901; 86920; 88305; 96361; 96374; 96375; 96376; 99285